=== PATIENT | female | born 1995 | race Caucasian/White ===

== ENCOUNTER 2020-02-29 16:46 | Inpatient (IN) ==
[2020-02-29] MEDS ORDERED: *HR* HYDROmorphone (PF) 1 MG/ML SYRINGE IVP ONE (18:04)
[2020-02-29 19:02] LABS: Basophils # 0.3 K/mcL (0.0-0.2); Basophils % 2.1 %; Eosinophils # 0.3 K/mcL (0.0-0.6); Hematocrit 36.9 % (35.3-44.9); Hemoglobin 12.1 g/dL (11.5-15.4); Immature Granulocytes % 5.3 % (0-4); Lymphocytes % 17.2 %; Mean Corpuscular HGB Conc 32.8 g/dL (31.6-35.5); Mean Corpuscular Hemoglobin 27.1 pg (28.0-33.3); Mean Corpuscular Volume 82.6 fL (83.0-100.0); Mean Platelet Volume 9.6 fL (9.4-12.4); Monocytes # 0.9 K/mcL (0.0-1.3); Monocytes % 5.8 %; Neutrophils # 10.4 K/mcL (1.6-8.9); Platelet Count 297 K/mcL (140-400); Red Blood Count 4.47 M/mcL (3.82-4.97); Red Cell Distribution Width 13.2 % (11.5-14.5); Segmented Neutrophils % 67.6 %; White Blood Count 15.4 K/mcL (4.3-11.1)
[2020-02-29 19:07] LABS: Lymphocytes # 2.7 K/mcL (0.6-4.6)
[2020-02-29 19:17] LABS: Alanine Aminotransferase 17 Units/L (7-52); Albumin/Globulin Ratio 1.1 (1.1-2.2); Alkaline Phosphatase 66 Units/L (34-104); Aspartate Amino Transferase 12 Units/L (13-39); BUN/Creatinine Ratio 27 (6-26); Bilirubin,Total 0.3 mg/dL (0.3-1.0); Blood Urea Nitrogen 16 mg/dL (6-20); Calcium 9.5 mg/dL (8.6-10.3); Carbon Dioxide 26 mEq/L (23-29); Chloride 104 mEq/L (98-107); Globulin 3.7 g/dL (2.4-3.5); Glucose 87 mg/dL (70-105); Osmolality,Calculated 289 (280-300); Potassium 3.2 mEq/L (3.5-5.1); Sodium 139 mEq/L (136-145); Total Protein 7.7 g/dL (6.4-8.9); eGFR For African Americans > 60 (> 60); eGFR For Non-African Americans > 60 (> 60)
[2020-02-29 19:20] LABS: Reactive Lymphocytes Present (Not Present); Toxic Granulation Present (Not Present)
[2020-02-29 19:21] LABS: Dohle Bodies Present (Not Present); Large Platelets Present (Not Present)
[2020-02-29 19:33] LABS: Bilirubin,Urine Negative (Negative); Blood,Urine Negative (Negative); Clarity,Urine Clear (Clear); Color,Urine Yellow (Yellow); Glucose,Urine (UA) 100 mg/dL (Normal); Ketones,Urine Negative (Negative); Leukocyte Esterase,Urine Negative (Negative); Mucus,Urine Few per lpf (None-Few); Nitrite,Urine Negative (Negative); Protein,Urine 30 mg/dL (Neg-Trace); RBC,Urine 0-3 per hpf (0-3); Specific Gravity,Urine > 1.030 (1.010-1.025); Squamous Epithelial Cell,Urine Few per hpf (None-Few); WBC,Urine 0-3 per hpf (0-3)
[2020-02-29 19:48] LABS: Influenza A PCR Negative (Negative); Influenza B PCR Negative (Negative); Resp. Syncytial Virus PCR Negative (Negative)
[2020-02-29 19:50] LABS: SARS-CoV-2 by PCR (In House) Negative (Negative)
[2020-02-29] MEDS ORDERED: *HR* HYDROcodone/Acet 5/325 mg TABLET PO ONE ×2 (22:00→22:11)
[2020-02-29] MEDS ORDERED: Naloxone 0.4 MG/ML INJ IVP PRN (22:55)
[2020-03-01] MEDS ORDERED: *HR* Dextrose 50 % in Water (Vial) 50 ML VIAL IVP PRN (00:10)
[2020-03-01] MEDS ORDERED: D5% in Water 1,000 ML IVC PRN (00:10)
[2020-03-01] MEDS ORDERED: Dextrose Gel 15 GM/37.5 ML TUBE PO PRN ×2 (00:10)
[2020-03-01] MEDS: 0.9 % Sodium Chloride 1,000 ML IVC SCH ×2 (00:51→13:13)
[2020-03-01] MEDS: *HR* HYDROmorphone (PF) 1 MG/ML SYRINGE IVP PRN ×5 (00:53→20:09)
[2020-03-01 01:45] LABS: White Blood Count 16.4 K/mcL (4.3-11.1)
[2020-03-01 01:46] LABS: Hematocrit 37.6 % (35.3-44.9); Hemoglobin 12.2 g/dL (11.5-15.4); Mean Corpuscular HGB Conc 32.4 g/dL (31.6-35.5); Mean Corpuscular Hemoglobin 27.2 pg (28.0-33.3); Mean Corpuscular Volume 83.7 fL (83.0-100.0); Platelet Count 305 K/mcL (140-400); Red Blood Count 4.49 M/mcL (3.82-4.97); Red Cell Distribution Width 13.2 % (11.5-14.5)
[2020-03-01 01:59] LABS: INR 1.2; Prothrombin Time 13.6 Seconds (9.4-12.1)
[2020-03-01 02:06] LABS: BUN/Creatinine Ratio 25 (6-26); Blood Urea Nitrogen 15 mg/dL (6-20); Carbon Dioxide 22 mEq/L (23-29); Chloride 102 mEq/L (98-107); Glucose 254 mg/dL (70-105); Magnesium 1.9 mg/dL (1.6-2.6); Osmolality,Calculated 291 (280-300); Phosphorous 4.1 mg/dL (2.7-4.5); Potassium 3.9 mEq/L (3.5-5.1); Sodium 136 mEq/L (136-145); eGFR For African Americans > 60 (> 60); eGFR For Non-African Americans > 60 (> 60)
[2020-03-01 02:24] LABS: Monocytes # 0.7 K/mcL (0.0-1.3); Neutrophils # 13.5 K/mcL (1.6-8.9); Platelet Estimate Normal (Normal); Toxic Granulation Present (Not Present)
[2020-03-01 02:25] LABS: Anisocytosis 1+ (Not Present)
[2020-03-01 04:45] LABS: Estimated Average Glucose 341 mg/dl; Hemoglobin A1C 13.5 %
[2020-03-01] MEDS: Insulin LISPRO 300 UNITS/3 ML VIAL SUBQ SCH ×5 (04:47→21:21)
[2020-03-01] MEDS: Ondansetron ODT 4 MG TAB.RAPDIS SL PRN ×2 (17:21→23:19)
[2020-03-01] MEDS: Pregabalin 75 MG CAPSULE PO SCH (20:10)
[2020-03-01] MEDS: Apixaban 5 MG TABLET PO SCH (20:10)
[2020-03-01] MEDS: tiZANidine 4 MG TABLET PO SCH (20:10)
[2020-03-01] MEDS: traZODone 50 MG TABLET PO SCH (21:20)
[2020-03-01] MEDS: *HR* LORazepam 0.5 MG TABLET PO SCH (21:20)
[2020-03-01] MEDS: *HR* Insulin Regular U-500 500 UNIT/ML SUBQ SCH (21:23)
[2020-03-02] MEDS: *HR* HYDROmorphone (PF) 1 MG/ML SYRINGE IVP PRN ×6 (01:19→22:35)
[2020-03-02] MEDS: Pregabalin 75 MG CAPSULE PO SCH ×3 (07:51→20:33)
[2020-03-02] MEDS: Apixaban 5 MG TABLET PO SCH ×2 (07:51→20:33)
[2020-03-02] MEDS: *HR* LORazepam 0.5 MG TABLET PO SCH ×2 (07:51→20:32)
[2020-03-02] MEDS: tiZANidine 4 MG TABLET PO SCH ×3 (07:52→20:33)
[2020-03-02] MEDS: Insulin LISPRO 300 UNITS/3 ML VIAL SUBQ SCH ×4 (07:53→23:48)
[2020-03-02] MEDS: *HR* Insulin Regular U-500 500 UNIT/ML SUBQ SCH (08:04)
[2020-03-02] MEDS: lisinopriL 5 MG TABLET PO SCH (08:05)
[2020-03-02] MEDS: lamoTRIgine 25 MG TABLET PO SCH (08:08)
[2020-03-02 08:25] LABS: Basophils # 0.2 K/mcL (0.0-0.2); Hematocrit 35.5 % (35.3-44.9); Hemoglobin 11.6 g/dL (11.5-15.4); Mean Corpuscular HGB Conc 32.7 g/dL (31.6-35.5); Mean Corpuscular Hemoglobin 27.8 pg (28.0-33.3); Mean Corpuscular Volume 85.1 fL (83.0-100.0); Mean Platelet Volume 9.7 fL (9.4-12.4); Platelet Count 245 K/mcL (140-400); Red Blood Count 4.17 M/mcL (3.82-4.97); Red Cell Distribution Width 13.1 % (11.5-14.5); White Blood Count 8.8 K/mcL (4.3-11.1)
[2020-03-02 08:39] LABS: Alanine Aminotransferase 15 Units/L (7-52); Albumin 3.7 g/dL (3.5-5.7); Albumin/Globulin Ratio 1.2 (1.1-2.2); Alkaline Phosphatase 73 Units/L (34-104); Aspartate Amino Transferase 14 Units/L (13-39); BUN/Creatinine Ratio 16 (6-26); Bilirubin,Total 0.3 mg/dL (0.3-1.0); Blood Urea Nitrogen 12 mg/dL (6-20); Calcium 9.3 mg/dL (8.6-10.3); Carbon Dioxide 25 mEq/L (23-29); Chloride 99 mEq/L (98-107); Globulin 3.2 g/dL (2.4-3.5); Glucose 407 mg/dL (70-105); Osmolality,Calculated 293 (280-300); Potassium 4.4 mEq/L (3.5-5.1); Sodium 133 mEq/L (136-145); Total Protein 6.9 g/dL (6.4-8.9); eGFR For African Americans > 60 (> 60); eGFR For Non-African Americans > 60 (> 60)
[2020-03-02 09:04] LABS: Large Platelets Present (Not Present); Lymphocytes # 1.4 K/mcL (0.6-4.6); Monocytes # 1.2 K/mcL (0.0-1.3); Platelet Estimate Normal (Normal)
[2020-03-02] MEDS: Insulin Regular, Human 100 UNIT/ML SUBQ SCH ×2 (13:09→18:39)
[2020-03-02] MEDS: Insulin DETEMIR 100 UNIT/ML X5UNITS SUBQ SCH (18:13)
[2020-03-02] MEDS: traZODone 50 MG TABLET PO SCH (20:30)
[2020-03-03] MEDS: *HR* HYDROmorphone (PF) 1 MG/ML SYRINGE IVP PRN ×3 (02:58→12:09)
[2020-03-03 07:13] LABS: Basophils # 0.2 K/mcL (0.0-0.2); Hematocrit 36.8 % (35.3-44.9); Hemoglobin 11.9 g/dL (11.5-15.4); Mean Corpuscular HGB Conc 32.3 g/dL (31.6-35.5); Mean Corpuscular Hemoglobin 26.9 pg (28.0-33.3); Mean Corpuscular Volume 83.3 fL (83.0-100.0); Mean Platelet Volume 9.8 fL (9.4-12.4); Nucleated Red Blood Cells 0.2 /100 WBC (0); Platelet Count 253 K/mcL (140-400); Red Blood Count 4.42 M/mcL (3.82-4.97); Red Cell Distribution Width 13.1 % (11.5-14.5); White Blood Count 9.7 K/mcL (4.3-11.1)
[2020-03-03 07:37] LABS: BUN/Creatinine Ratio 19 (6-26); Blood Urea Nitrogen 14 mg/dL (6-20); Calcium 9.1 mg/dL (8.6-10.3); Carbon Dioxide 24 mEq/L (23-29); Chloride 97 mEq/L (98-107); Glucose 416 mg/dL (70-105); Magnesium 1.6 mg/dL (1.6-2.6); Osmolality,Calculated 292 (280-300); Potassium 4.3 mEq/L (3.5-5.1); Sodium 132 mEq/L (136-145); eGFR For African Americans > 60 (> 60); eGFR For Non-African Americans > 60 (> 60)
[2020-03-03] MEDS: Insulin DETEMIR 100 UNIT/ML X5UNITS SUBQ SCH ×2 (07:58→20:20)
[2020-03-03] MEDS: lamoTRIgine 25 MG TABLET PO SCH (07:59)
[2020-03-03] MEDS: lisinopriL 5 MG TABLET PO SCH (07:59)
[2020-03-03] MEDS: tiZANidine 4 MG TABLET PO SCH ×3 (08:00→20:12)
[2020-03-03] MEDS: Pregabalin 75 MG CAPSULE PO SCH ×3 (08:00→20:13)
[2020-03-03] MEDS: Apixaban 5 MG TABLET PO SCH ×2 (08:01→20:13)
[2020-03-03] MEDS: *HR* LORazepam 0.5 MG TABLET PO SCH ×2 (08:02→20:14)
[2020-03-03] MEDS: Insulin LISPRO 300 UNITS/3 ML VIAL SUBQ SCH ×3 (08:02→16:28)
[2020-03-03 08:13] LABS: Eosinophils # 0.2 K/mcL (0.0-0.6); Lymphocytes # 1.4 K/mcL (0.6-4.6); Monocytes # 0.2 K/mcL (0.0-1.3); Neutrophils # 6.4 K/mcL (1.6-8.9); Reactive Lymphocytes Present (Not Present)
[2020-03-03 08:14] LABS: Platelet Estimate Normal (Normal)
[2020-03-03] MEDS: Insulin Regular, Human 100 UNIT/ML SUBQ SCH (12:39)
[2020-03-03] MEDS ORDERED: *HR* OxyCODONE/APAP 10/325 TABLET PO PRN (15:48)
[2020-03-03] MEDS ORDERED: *HR* Dextrose 50 % in Water (Vial) 50 ML VIAL IVP PRN (16:15)
[2020-03-03] MEDS ORDERED: D5% in Water 1,000 ML IVC PRN (16:15)
[2020-03-03] MEDS ORDERED: Dextrose Gel 15 GM/37.5 ML TUBE PO PRN ×2 (16:15)
[2020-03-03] MEDS: *HR* OxyCODONE/APAP 10/325 TABLET PO PRN ×2 (16:22→23:57)
[2020-03-03] MEDS: traZODone 50 MG TABLET PO SCH (20:13)
[2020-03-03] MEDS: *HR* HYDROmorphone PF 0.5 MG/0.5 ML SYRINGE IVP PRN (20:14)
[2020-03-04 02:52] LABS: Hematocrit 34.1 % (35.3-44.9); Hemoglobin 11.3 g/dL (11.5-15.4); Mean Corpuscular HGB Conc 33.1 g/dL (31.6-35.5); Mean Corpuscular Hemoglobin 27.2 pg (28.0-33.3); Mean Corpuscular Volume 82.2 fL (83.0-100.0); Mean Platelet Volume 9.8 fL (9.4-12.4); Platelet Count 255 K/mcL (140-400); Red Blood Count 4.15 M/mcL (3.82-4.97); White Blood Count 10.1 K/mcL (4.3-11.1)
[2020-03-04 03:12] LABS: BUN/Creatinine Ratio 24 (6-26); Blood Urea Nitrogen 19 mg/dL (6-20); Calcium 8.6 mg/dL (8.6-10.3); Carbon Dioxide 21 mEq/L (23-29); Chloride 95 mEq/L (98-107); Glucose 501 mg/dL (70-105); Magnesium 1.6 mg/dL (1.6-2.6); Osmolality,Calculated 291 (280-300); Potassium 4.3 mEq/L (3.5-5.1); Sodium 128 mEq/L (136-145); eGFR For African Americans > 60 (> 60); eGFR For Non-African Americans > 60 (> 60)
[2020-03-04] MEDS ORDERED: Insulin Human Regular 10 UNIT in 0.9 % Sodium Chloride 10 ML IV ONE (03:19)
[2020-03-04 04:00] LABS: Eosinophils # 0.2 K/mcL (0.0-0.6); Lymphocytes # 2.6 K/mcL (0.6-4.6); Monocytes # 0.8 K/mcL (0.0-1.3); Neutrophils # 6.5 K/mcL (1.6-8.9)
[2020-03-04 04:01] LABS: Platelet Estimate Normal (Normal); Reactive Lymphocytes Present (Not Present)
[2020-03-04] MEDS: *HR* HYDROmorphone PF 0.5 MG/0.5 ML SYRINGE IVP PRN (04:17)
[2020-03-04] MEDS ORDERED: Insulin LISPRO 300 UNITS/3 ML VIAL SUBQ ONE (04:47)
[2020-03-04] MEDS: *HR* OxyCODONE/APAP 10/325 TABLET PO PRN ×3 (05:59→18:10)
[2020-03-04] MEDS: Apixaban 5 MG TABLET PO SCH ×2 (07:57→20:37)
[2020-03-04] MEDS: lamoTRIgine 25 MG TABLET PO SCH (07:57)
[2020-03-04] MEDS: *HR* LORazepam 0.5 MG TABLET PO SCH ×2 (07:57→20:36)
[2020-03-04] MEDS: Pregabalin 75 MG CAPSULE PO SCH ×3 (07:57→20:36)
[2020-03-04] MEDS: tiZANidine 4 MG TABLET PO SCH ×3 (07:58→20:36)
[2020-03-04] MEDS: Insulin DETEMIR 100 UNIT/ML X5UNITS SUBQ SCH ×3 (07:59→20:40)
[2020-03-04] MEDS: Insulin LISPRO 300 UNITS/3 ML VIAL SUBQ SCH ×3 (08:00→16:51)
[2020-03-04] MEDS: lisinopriL 5 MG TABLET PO SCH (08:03)
[2020-03-04] MEDS ORDERED: Dextrose Gel 15 GM/37.5 ML TUBE PO PRN ×2 (08:04)
[2020-03-04] MEDS ORDERED: D5% in Water 1,000 ML IVC PRN (08:04)
[2020-03-04] MEDS ORDERED: *HR* Dextrose 50 % in Water (Vial) 50 ML VIAL IVP PRN (08:04)
[2020-03-04] MEDS: Sennosides/Docusate Sodium TABLET PO SCH (08:41)
[2020-03-04] MEDS: Metoprolol XL (24 HR) Succ 25 MG TAB.ER.24H PO SCH (08:41)
[2020-03-04] MEDS: polyethylene glycoL 3350 17 GM POWD.PACK PO SCH (10:53)
[2020-03-04] MEDS ORDERED: *HR* HYDROmorphone 2 MG TABLET PO PRN (14:29)
[2020-03-04] MEDS: traZODone 50 MG TABLET PO SCH (20:37)
[2020-03-05] MEDS: *HR* OxyCODONE/APAP 10/325 TABLET PO PRN ×4 (00:16→18:21)
[2020-03-05] MEDS ORDERED: Albuterol 2.5 MG/3 ML NEBULIZER IH PRN (01:26)
[2020-03-05 01:31] LABS: Basophils % 0.4 %; Eosinophils % 0.1 %; Hematocrit 37.5 % (35.3-44.9); Hemoglobin 12.1 g/dL (11.5-15.4); Immature Granulocytes % 14.5 % (0-4); Lymphocytes # 1.9 K/mcL (0.6-4.6); Lymphocytes % 19.5 %; Mean Corpuscular HGB Conc 32.3 g/dL (31.6-35.5); Mean Corpuscular Hemoglobin 27.4 pg (28.0-33.3); Mean Corpuscular Volume 84.8 fL (83.0-100.0); Mean Platelet Volume 9.9 fL (9.4-12.4); Monocytes # 1.4 K/mcL (0.0-1.3); Monocytes % 14.8 %; Neutrophils # 4.8 K/mcL (1.6-8.9); Platelet Count 255 K/mcL (140-400); Red Blood Count 4.42 M/mcL (3.82-4.97); Red Cell Distribution Width 12.9 % (11.5-14.5); Segmented Neutrophils % 50.7 %; White Blood Count 9.5 K/mcL (4.3-11.1)
[2020-03-05] MEDS: Ringers Solution, Lactated 1,000 ML IVC SCH ×2 (01:32→18:32)
[2020-03-05 01:50] LABS: Platelet Estimate Normal (Normal); Reactive Lymphocytes Present (Not Present)
[2020-03-05 01:51] LABS: BUN/Creatinine Ratio 23 (6-26); Blood Urea Nitrogen 21 mg/dL (6-20); Calcium 8.5 mg/dL (8.6-10.3); Carbon Dioxide 23 mEq/L (23-29); Chloride 95 mEq/L (98-107); Glucose 474 mg/dL (70-105); Magnesium 1.6 mg/dL (1.6-2.6); Osmolality,Calculated 292 (280-300); Potassium 4.3 mEq/L (3.5-5.1); Sodium 129 mEq/L (136-145); eGFR For African Americans > 60 (> 60); eGFR For Non-African Americans > 60 (> 60)
[2020-03-05] MEDS: Acetaminophen 325 MG TABLET PO PRN (05:14)
[2020-03-05] MEDS: Pregabalin 75 MG CAPSULE PO SCH ×3 (08:16→21:57)
[2020-03-05] MEDS: Apixaban 5 MG TABLET PO SCH ×2 (08:16→21:57)
[2020-03-05] MEDS: Sennosides/Docusate Sodium TABLET PO SCH (08:16)
[2020-03-05] MEDS: *HR* LORazepam 0.5 MG TABLET PO SCH ×2 (08:16→21:57)
[2020-03-05] MEDS: tiZANidine 4 MG TABLET PO SCH ×3 (08:17→21:57)
[2020-03-05] MEDS: lamoTRIgine 25 MG TABLET PO SCH (08:17)
[2020-03-05] MEDS: Metoprolol XL (24 HR) Succ 25 MG TAB.ER.24H PO SCH (08:18)
[2020-03-05] MEDS: lisinopriL 5 MG TABLET PO SCH (08:18)
[2020-03-05] MEDS: polyethylene glycoL 3350 17 GM POWD.PACK PO SCH (08:18)
[2020-03-05] MEDS: Insulin LISPRO 300 UNITS/3 ML VIAL SUBQ SCH ×3 (08:18→17:18)
[2020-03-05] MEDS: Insulin DETEMIR 100 UNIT/ML X5UNITS SUBQ SCH ×2 (08:26→21:58)
[2020-03-05 17:57] LABS: Adenovirus Not Detected (Not Detect); Coronavirus 229E Not Detected (Not Detect); Coronavirus HKU1 Not Detected (Not Detect); Coronavirus NL63 Not Detected (Not Detect); Coronavirus OC43 Not Detected (Not Detect)
[2020-03-05 17:59] LABS: Bordetella Pertussis Not Detected (Not Detect); Chlamydophila pneumoniae Not Detected (Not Detect); Human Metapneumovirus Not Detected (Not Detect); Human Rhinovirus/Enterovirus Not Detected (Not Detect); Influenza A Subtype 2009 H1 Not Detected (Not Detect); Influenza B Not Detected (Not Detect); Mycoplasma pneumoniae Not Detected (Not Detect); Parainfluenza Virus 1 Not Detected (Not Detect); Parainfluenza Virus 2 Not Detected (Not Detect); Parainfluenza Virus 3 Not Detected (Not Detect); Parainfluenza Virus 4 Not Detected (Not Detect); Respiratory Syncytial Virus Not Detected (Not Detect); SARS-CoV-2 DETECTED (Not Detect)
[2020-03-05] MEDS: traZODone 50 MG TABLET PO SCH (21:57)
[2020-03-06] MEDS: Acetaminophen 325 MG TABLET PO PRN (00:17)
[2020-03-06 01:47] LABS: Hematocrit 37.3 % (35.3-44.9); Mean Corpuscular HGB Conc 32.2 g/dL (31.6-35.5); Mean Corpuscular Hemoglobin 26.7 pg (28.0-33.3); Mean Corpuscular Volume 83.1 fL (83.0-100.0); Mean Platelet Volume 9.8 fL (9.4-12.4); Monocytes # 1.2 K/mcL (0.0-1.3); Platelet Count 238 K/mcL (140-400); Red Blood Count 4.49 M/mcL (3.82-4.97); Red Cell Distribution Width 12.9 % (11.5-14.5); White Blood Count 11.7 K/mcL (4.3-11.1)
[2020-03-06 02:08] LABS: BUN/Creatinine Ratio 23 (6-26); Blood Urea Nitrogen 21 mg/dL (6-20); Calcium 8.5 mg/dL (8.6-10.3); Carbon Dioxide 26 mEq/L (23-29); Chloride 97 mEq/L (98-107); Glucose 303 mg/dL (70-105); Magnesium 1.8 mg/dL (1.6-2.6); Osmolality,Calculated 288 (280-300); Potassium 4.3 mEq/L (3.5-5.1); Sodium 132 mEq/L (136-145); eGFR For African Americans > 60 (> 60); eGFR For Non-African Americans > 60 (> 60)
[2020-03-06 02:31] LABS: Lymphocytes # 2.6 K/mcL (0.6-4.6); Neutrophils # 6.6 K/mcL (1.6-8.9); Reactive Lymphocytes Present (Not Present)
[2020-03-06] MEDS: *HR* OxyCODONE/APAP 10/325 TABLET PO PRN ×3 (06:17→21:18)
[2020-03-06] MEDS: Pregabalin 75 MG CAPSULE PO SCH ×3 (08:59→20:45)
[2020-03-06] MEDS: tiZANidine 4 MG TABLET PO SCH ×3 (09:03→20:44)
[2020-03-06] MEDS: Metoprolol XL (24 HR) Succ 25 MG TAB.ER.24H PO SCH ×2 (09:04→10:39)
[2020-03-06] MEDS: Apixaban 5 MG TABLET PO SCH ×2 (09:05→20:45)
[2020-03-06] MEDS: lamoTRIgine 25 MG TABLET PO SCH (09:05)
[2020-03-06] MEDS: Sennosides/Docusate Sodium TABLET PO SCH (09:05)
[2020-03-06] MEDS: *HR* LORazepam 0.5 MG TABLET PO SCH ×2 (09:05→20:44)
[2020-03-06] MEDS: polyethylene glycoL 3350 17 GM POWD.PACK PO SCH ×2 (09:07→10:38)
[2020-03-06] MEDS: lisinopriL 5 MG TABLET PO SCH (09:09)
[2020-03-06] MEDS: Insulin DETEMIR 100 UNIT/ML X5UNITS SUBQ SCH ×2 (09:28→20:46)
[2020-03-06] MEDS: Insulin LISPRO 300 UNITS/3 ML VIAL SUBQ SCH ×3 (09:31→17:58)
[2020-03-06] MEDS: Ondansetron ODT 4 MG TAB.RAPDIS SL PRN (16:00)
[2020-03-06] MEDS: dexAMETHasone 4 MG TABLET PO SCH (18:17)
[2020-03-06] MEDS: Ringers Solution, Lactated 1,000 ML IVC SCH ×3 (18:45→21:27)
[2020-03-06] MEDS: traZODone 50 MG TABLET PO SCH (20:44)
[2020-03-07] MEDS: Ringers Solution, Lactated 1,000 ML IVC SCH ×2 (01:30→08:33)
[2020-03-07] MEDS: tiZANidine 4 MG TABLET PO SCH ×3 (08:29→20:36)
[2020-03-07] MEDS: polyethylene glycoL 3350 17 GM POWD.PACK PO SCH (08:29)
[2020-03-07] MEDS: Apixaban 5 MG TABLET PO SCH ×2 (08:29→20:36)
[2020-03-07] MEDS: Sennosides/Docusate Sodium TABLET PO SCH (08:30)
[2020-03-07] MEDS: Pregabalin 75 MG CAPSULE PO SCH ×3 (08:30→20:37)
[2020-03-07] MEDS: lamoTRIgine 25 MG TABLET PO SCH (08:30)
[2020-03-07] MEDS: *HR* LORazepam 0.5 MG TABLET PO SCH ×2 (08:30→20:36)
[2020-03-07] MEDS: dexAMETHasone 4 MG TABLET PO SCH (08:31)
[2020-03-07] MEDS: Insulin LISPRO 300 UNITS/3 ML VIAL SUBQ SCH ×2 (08:32→12:08)
[2020-03-07] MEDS: Insulin DETEMIR 100 UNIT/ML X5UNITS SUBQ SCH (08:32)
[2020-03-07] MEDS: lisinopriL 5 MG TABLET PO SCH (08:33)
[2020-03-07] MEDS: Metoprolol XL (24 HR) Succ 25 MG TAB.ER.24H PO SCH (08:33)
[2020-03-07] MEDS: *HR* OxyCODONE/APAP 10/325 TABLET PO PRN ×3 (08:40→21:39)
[2020-03-07] MEDS ORDERED: Insulin DETEMIR 100 UNIT/ML X5UNITS SUBQ ONE (09:37)
[2020-03-07 10:08] LABS: Hematocrit 37.6 % (35.3-44.9); Hemoglobin 12.2 g/dL (11.5-15.4); Mean Corpuscular HGB Conc 32.4 g/dL (31.6-35.5); Mean Corpuscular Hemoglobin 27.4 pg (28.0-33.3); Mean Corpuscular Volume 84.5 fL (83.0-100.0); Mean Platelet Volume 10.1 fL (9.4-12.4); Platelet Count 250 K/mcL (140-400); Red Blood Count 4.45 M/mcL (3.82-4.97); Red Cell Distribution Width 12.9 % (11.5-14.5); White Blood Count 7.9 K/mcL (4.3-11.1)
[2020-03-07 10:12] LABS: Fibrinogen 693 mg/dL (169-393)
[2020-03-07 10:15] LABS: D-Dimer 268 ng/mLFEU (0-500)
[2020-03-07 10:23] LABS: Alanine Aminotransferase 13 Units/L (7-52); Albumin 3.7 g/dL (3.5-5.7); Alkaline Phosphatase 62 Units/L (34-104); Aspartate Amino Transferase 17 Units/L (13-39); BUN/Creatinine Ratio 26 (6-26); Bilirubin,Total 0.3 mg/dL (0.3-1.0); Blood Urea Nitrogen 18 mg/dL (6-20); Calcium 8.9 mg/dL (8.6-10.3); Carbon Dioxide 24 mEq/L (23-29); Chloride 95 mEq/L (98-107); Globulin 3.6 g/dL (2.4-3.5); Glucose 364 mg/dL (70-105); Osmolality,Calculated 289 (280-300); Potassium 4.8 mEq/L (3.5-5.1); Sodium 131 mEq/L (136-145); Total Protein 7.3 g/dL (6.4-8.9); eGFR For African Americans > 60 (> 60); eGFR For Non-African Americans > 60 (> 60)
[2020-03-07 11:12] LABS: Lymphocytes # 1.2 K/mcL (0.6-4.6); Monocytes # 0.5 K/mcL (0.0-1.3); Platelet Estimate Normal (Normal)
[2020-03-07] MEDS: Ipratropium 1 PUFF INHALER IH SCH ×3 (11:30→20:38)
[2020-03-07] MEDS ORDERED: Insulin LISPRO 300 UNITS/3 ML VIAL SUBQ SCH ×2 (12:00→21:00)
[2020-03-07] MEDS: Azithromycin 250 MG TABLET PO SCH (12:07)
[2020-03-07] MEDS: cefTRIAXone 1,000 MG in Water for inj. (sterile) 10 ML IVP SCH (13:52)
[2020-03-07] MEDS ORDERED: *HR* Dextrose 50 % in Water (Vial) 50 ML VIAL IVP PRN (16:22)
[2020-03-07] MEDS ORDERED: 0.9 % Sodium Chloride 1,000 ML IVC SCH (16:30)
[2020-03-07] MEDS: Insulin Human Regular 100 UNIT in 0.9 % Sodium Chloride 100 ML IVC SCH ×2 (17:26→22:44)
[2020-03-07] MEDS: traZODone 50 MG TABLET PO SCH (20:37)
[2020-03-07] MEDS ORDERED: Insulin DETEMIR 100 UNIT/ML X5UNITS SUBQ SCH (21:00)
[2020-03-08] MEDS: Ipratropium 1 PUFF INHALER IH SCH ×7 (00:31→23:58)
[2020-03-08] MEDS: Insulin Human Regular 100 UNIT in 0.9 % Sodium Chloride 100 ML IVC SCH (04:04)
[2020-03-08 05:11] LABS: Hematocrit 37.4 % (35.3-44.9); Hemoglobin 11.7 g/dL (11.5-15.4); Mean Corpuscular HGB Conc 31.3 g/dL (31.6-35.5); Mean Corpuscular Hemoglobin 26.3 pg (28.0-33.3); Mean Platelet Volume 9.8 fL (9.4-12.4); Platelet Count 254 K/mcL (140-400); Red Blood Count 4.45 M/mcL (3.82-4.97); Red Cell Distribution Width 12.7 % (11.5-14.5)
[2020-03-08 05:23] LABS: White Blood Count 13.2 K/mcL (4.3-11.1)
[2020-03-08 05:26] LABS: BUN/Creatinine Ratio 29 (6-26); Blood Urea Nitrogen 22 mg/dL (6-20); Calcium 8.8 mg/dL (8.6-10.3); Carbon Dioxide 26 mEq/L (23-29); Chloride 98 mEq/L (98-107); Glucose 221 mg/dL (70-105); Osmolality,Calculated 292 (280-300); Sodium 136 mEq/L (136-145); eGFR For African Americans > 60 (> 60); eGFR For Non-African Americans > 60 (> 60)
[2020-03-08 06:09] LABS: Lymphocytes # 1.9 K/mcL (0.6-4.6); Monocytes # 0.5 K/mcL (0.0-1.3); Neutrophils # 9.5 K/mcL (1.6-8.9)
[2020-03-08 06:10] LABS: Platelet Estimate Normal (Normal)
[2020-03-08] MEDS: *HR* OxyCODONE/APAP 10/325 TABLET PO PRN ×3 (06:46→20:28)
[2020-03-08] MEDS: Insulin LISPRO 300 UNITS/3 ML VIAL SUBQ SCH ×5 (08:48→16:12)
[2020-03-08] MEDS: polyethylene glycoL 3350 17 GM POWD.PACK PO SCH ×2 (08:53→09:30)
[2020-03-08] MEDS: *HR* LORazepam 0.5 MG TABLET PO SCH ×2 (08:53→20:28)
[2020-03-08] MEDS: cefTRIAXone 1,000 MG in Water for inj. (sterile) 10 ML IVP SCH (08:53)
[2020-03-08] MEDS: Sennosides/Docusate Sodium TABLET PO SCH (08:54)
[2020-03-08] MEDS: dexAMETHasone 4 MG TABLET PO SCH (08:54)
[2020-03-08] MEDS: Metoprolol XL (24 HR) Succ 25 MG TAB.ER.24H PO SCH ×2 (08:54→09:30)
[2020-03-08] MEDS: Apixaban 5 MG TABLET PO SCH ×2 (08:54→20:28)
[2020-03-08] MEDS: tiZANidine 4 MG TABLET PO SCH ×3 (08:54→20:27)
[2020-03-08] MEDS: Pregabalin 75 MG CAPSULE PO SCH ×3 (08:55→20:27)
[2020-03-08] MEDS: Azithromycin 250 MG TABLET PO SCH (08:55)
[2020-03-08] MEDS: lamoTRIgine 25 MG TABLET PO SCH (08:55)
[2020-03-08] MEDS: Insulin DETEMIR 100 UNIT/ML X5UNITS SUBQ SCH ×2 (11:43→20:30)
[2020-03-08] MEDS: traZODone 50 MG TABLET PO SCH (20:28)
[2020-03-09] MEDS: Ipratropium 1 PUFF INHALER IH SCH ×7 (03:43→23:43)
[2020-03-09 04:24] LABS: Hematocrit 37.8 % (35.3-44.9); Mean Corpuscular HGB Conc 31.7 g/dL (31.6-35.5); Mean Corpuscular Hemoglobin 26.4 pg (28.0-33.3); Mean Corpuscular Volume 83.3 fL (83.0-100.0); Mean Platelet Volume 9.7 fL (9.4-12.4); Platelet Count 291 K/mcL (140-400); Red Blood Count 4.54 M/mcL (3.82-4.97); Red Cell Distribution Width 13.2 % (11.5-14.5); White Blood Count 18.6 K/mcL (4.3-11.1)
[2020-03-09] MEDS: *HR* OxyCODONE/APAP 10/325 TABLET PO PRN ×3 (04:33→20:17)
[2020-03-09 04:42] LABS: BUN/Creatinine Ratio 26 (6-26); Blood Urea Nitrogen 18 mg/dL (6-20); Calcium 8.8 mg/dL (8.6-10.3); Carbon Dioxide 26 mEq/L (23-29); Chloride 93 mEq/L (98-107); Glucose 406 mg/dL (70-105); Osmolality,Calculated 291 (280-300); Potassium 4.5 mEq/L (3.5-5.1); Sodium 131 mEq/L (136-145); eGFR For African Americans > 60 (> 60); eGFR For Non-African Americans > 60 (> 60)
[2020-03-09 05:16] LABS: Lymphocytes # 2.6 K/mcL (0.6-4.6); Monocytes # 1.5 K/mcL (0.0-1.3); Reactive Lymphocytes Present (Not Present)
[2020-03-09 05:17] LABS: Platelet Estimate Normal (Normal)
[2020-03-09] MEDS: Metoprolol XL (24 HR) Succ 25 MG TAB.ER.24H PO SCH (08:19)
[2020-03-09] MEDS: polyethylene glycoL 3350 17 GM POWD.PACK PO SCH (08:20)
[2020-03-09] MEDS: lamoTRIgine 25 MG TABLET PO SCH (08:31)
[2020-03-09] MEDS: Apixaban 5 MG TABLET PO SCH ×2 (08:31→20:18)
[2020-03-09] MEDS: tiZANidine 4 MG TABLET PO SCH ×3 (08:31→20:16)
[2020-03-09] MEDS: Pregabalin 75 MG CAPSULE PO SCH ×3 (08:31→20:16)
[2020-03-09] MEDS: cefTRIAXone 1,000 MG in Water for inj. (sterile) 10 ML IVP SCH (08:31)
[2020-03-09] MEDS: Azithromycin 250 MG TABLET PO SCH (08:32)
[2020-03-09] MEDS: *HR* LORazepam 0.5 MG TABLET PO SCH ×2 (08:32→20:18)
[2020-03-09] MEDS: Sennosides/Docusate Sodium TABLET PO SCH (08:32)
[2020-03-09] MEDS: Insulin DETEMIR 100 UNIT/ML X5UNITS SUBQ SCH ×2 (08:33→21:10)
[2020-03-09] MEDS: Insulin LISPRO 300 UNITS/3 ML VIAL SUBQ SCH ×4 (08:33→12:00)
[2020-03-09] MEDS: dexAMETHasone 4 MG TABLET PO SCH (08:33)
[2020-03-09 13:59] LABS: Albumin 3.5 g/dL (3.5-5.7); Albumin/Globulin Ratio 0.9 (1.1-2.2); Bilirubin,Direct 0.1 mg/dL (0.0-0.2); Bilirubin,Indirect 0.1 mg/dL (0.0-1.0); Bilirubin,Total 0.2 mg/dL (0.3-1.0); Globulin 3.8 g/dL (2.4-3.5); Total Protein 7.3 g/dL (6.4-8.9)
[2020-03-09] MEDS ORDERED: Remdesivir 200 MG in 0.9 % Sodium Chloride 100 ML IVPB ONE ×3 (17:00→20:00)
[2020-03-09] MEDS ORDERED: Furosemide 40 MG/4 ML VIAL IVP ONE (19:58)
[2020-03-09 22:11] LABS: Fibrinogen 961 mg/dL (169-393)
[2020-03-09 22:21] LABS: D-Dimer 291 ng/mLFEU (0-500)
[2020-03-09] MEDS: traZODone 50 MG TABLET PO SCH (23:02)
[2020-03-09] MEDS: Pantoprazole 40 MG VIAL IVP SCH (23:14)
[2020-03-10] MEDS ORDERED: Dexmedetomidine HCl 400 MCG/100 ML MLS IVC ONE (00:44)
[2020-03-10] MEDS: Ipratropium 1 PUFF INHALER IH SCH ×6 (03:32→23:19)
[2020-03-10] MEDS: *HR* OxyCODONE Immed Rel 15 MG TABLET PO PRN ×2 (04:11→23:29)
[2020-03-10 07:13] LABS: Hematocrit 37.4 % (35.3-44.9); Hemoglobin 11.9 g/dL (11.5-15.4); Lymphocytes # 1.4 K/mcL (0.6-4.6); Mean Corpuscular HGB Conc 31.8 g/dL (31.6-35.5); Mean Corpuscular Hemoglobin 26.6 pg (28.0-33.3); Mean Corpuscular Volume 83.5 fL (83.0-100.0); Mean Platelet Volume 9.8 fL (9.4-12.4); Platelet Count 346 K/mcL (140-400); Red Blood Count 4.48 M/mcL (3.82-4.97); Red Cell Distribution Width 13.2 % (11.5-14.5); White Blood Count 23.6 K/mcL (4.3-11.1)
[2020-03-10 07:14] LABS: INR 1.6; Prothrombin Time 18.1 Seconds (9.4-12.1)
[2020-03-10 07:28] LABS: Alanine Aminotransferase 14 Units/L (7-52); Albumin 3.5 g/dL (3.5-5.7); Albumin/Globulin Ratio 0.8 (1.1-2.2); Alkaline Phosphatase 52 Units/L (34-104); Aspartate Amino Transferase 24 Units/L (13-39); BUN/Creatinine Ratio 27 (6-26); Bilirubin,Total 0.3 mg/dL (0.3-1.0); Blood Urea Nitrogen 19 mg/dL (6-20); Carbon Dioxide 28 mEq/L (23-29); Chloride 94 mEq/L (98-107); Globulin 4.2 g/dL (2.4-3.5); Glucose 380 mg/dL (70-105); Osmolality,Calculated 296 (280-300); Potassium 4.4 mEq/L (3.5-5.1); Sodium 134 mEq/L (136-145); Total Protein 7.7 g/dL (6.4-8.9); eGFR For African Americans > 60 (> 60); eGFR For Non-African Americans > 60 (> 60)
[2020-03-10] MEDS: Insulin LISPRO 300 UNITS/3 ML VIAL SUBQ SCH ×8 (07:48→18:25)
[2020-03-10] MEDS: Sennosides/Docusate Sodium TABLET PO SCH (07:53)
[2020-03-10] MEDS: Metoprolol XL (24 HR) Succ 25 MG TAB.ER.24H PO SCH ×2 (07:53→08:50)
[2020-03-10] MEDS: Azithromycin 250 MG TABLET PO SCH (07:53)
[2020-03-10] MEDS: tiZANidine 4 MG TABLET PO SCH ×3 (07:53→20:23)
[2020-03-10] MEDS: Apixaban 5 MG TABLET PO SCH (07:54)
[2020-03-10] MEDS: Pregabalin 75 MG CAPSULE PO SCH ×3 (07:55→20:22)
[2020-03-10] MEDS: *HR* LORazepam 0.5 MG TABLET PO SCH ×2 (07:55→20:23)
[2020-03-10] MEDS: lamoTRIgine 25 MG TABLET PO SCH (07:55)
[2020-03-10] MEDS: cefTRIAXone 1,000 MG in Water for inj. (sterile) 10 ML IVP SCH (08:02)
[2020-03-10] MEDS: Pantoprazole 40 MG VIAL IVP SCH (08:02)
[2020-03-10] MEDS: polyethylene glycoL 3350 17 GM POWD.PACK PO SCH ×2 (08:20→08:50)
[2020-03-10] MEDS: Insulin DETEMIR 100 UNIT/ML X5UNITS SUBQ SCH ×2 (08:20→21:08)
[2020-03-10 08:54] LABS: Monocytes # 0.5 K/mcL (0.0-1.3); Neutrophils # 20.8 K/mcL (1.6-8.9); Platelet Estimate Normal (Normal)
[2020-03-10] MEDS: Furosemide 40 MG/4 ML VIAL IVP SCH ×2 (11:14→20:33)
[2020-03-10] MEDS: Dexmedetomidine HCl 400 MCG/100 ML MLS IVC SCH ×2 (11:32→18:40)
[2020-03-10] MEDS: Acetaminophen IV 1,000 MG/100 ML BAG IVPB SCH ×2 (15:35→23:15)
[2020-03-10 16:46] LABS: Bilirubin,Urine Negative (Negative); Blood,Urine Small (Negative); Budding Yeast,Urine Few per hpf (None Seen); Clarity,Urine Clear (Clear); Color,Urine Yellow (Yellow); Glucose,Urine (UA) >=1000 mg/dL (Normal); Ketones,Urine Negative (Negative); Leukocyte Esterase,Urine Negative (Negative); Mucus,Urine Few per lpf (None-Few); Nitrite,Urine Negative (Negative); Protein,Urine 200 mg/dL (Neg-Trace); Squamous Epithelial Cell,Urine Few per hpf (None-Few); Urobilinogen,Urine Normal (Normal); WBC,Urine 0-3 per hpf (0-3)
[2020-03-10] MEDS ORDERED: Remdesivir 100 MG in 0.9 % Sodium Chloride 100 ML IVPB SCH ×3 (17:00→20:00)
[2020-03-10 17:06] LABS: Hematocrit 35.5 % (35.3-44.9); Hemoglobin 11.5 g/dL (11.5-15.4); Mean Corpuscular HGB Conc 32.4 g/dL (31.6-35.5); Mean Corpuscular Hemoglobin 26.9 pg (28.0-33.3); Mean Corpuscular Volume 82.9 fL (83.0-100.0); Mean Platelet Volume 9.9 fL (9.4-12.4); Platelet Count 327 K/mcL (140-400); Red Blood Count 4.28 M/mcL (3.82-4.97); Red Cell Distribution Width 13.4 % (11.5-14.5)
[2020-03-10 17:15] LABS: INR 1.8; Prothrombin Time 20.9 Seconds (9.4-12.1)
[2020-03-10 17:35] LABS: Heparin anti-factor XA UFH 1.35 IU/mL (0.30-0.70)
[2020-03-10] MEDS ORDERED: Acetaminophen IV 1,000 MG/100 ML BAG IVPB SCH (18:00)
[2020-03-10] MEDS: traZODone 50 MG TABLET PO SCH (20:23)
[2020-03-10] MEDS ORDERED: Heparin 25,000UNIT/250ML 1/2NS 25,000 UNIT/250 ML IV.SOLN IVC SCH (21:00)
[2020-03-10] MEDS ORDERED: *HR* Heparin 5,000 UNIT/ML VIAL IVP PRN (21:00)
[2020-03-10] MEDS ORDERED: Remdesivir 100 MG in 0.9 % Sodium Chloride 100 ML IVPB ONE (21:00)
[2020-03-10] MEDS: Remdesivir 100 MG in 0.9 % Sodium Chloride 100 ML IVPB SCH (21:00)
[2020-03-10] MEDS: *HR* OxyCODONE/APAP 10/325 TABLET PO PRN (21:11)
[2020-03-10] MEDS: Heparin 25,000UNIT/250ML 1/2NS 25,000 UNIT/250 ML IV.SOLN IVC SCH (23:46)
[2020-03-11] MEDS: Dexmedetomidine HCl 400 MCG/100 ML MLS IVC SCH ×4 (00:38→19:20)
[2020-03-11 03:28] LABS: Hematocrit 35.8 % (35.3-44.9); Hemoglobin 11.2 g/dL (11.5-15.4); Mean Corpuscular HGB Conc 31.3 g/dL (31.6-35.5); Mean Corpuscular Hemoglobin 26.9 pg (28.0-33.3); Mean Corpuscular Volume 86.1 fL (83.0-100.0); Platelet Count 346 K/mcL (140-400); Red Blood Count 4.16 M/mcL (3.82-4.97); Red Cell Distribution Width 13.6 % (11.5-14.5); White Blood Count 19.9 K/mcL (4.3-11.1)
[2020-03-11 03:31] LABS: Heparin anti-factor XA UFH 0.8 IU/mL (0.30-0.70); INR 1.6; Prothrombin Time 18.2 Seconds (9.4-12.1)
[2020-03-11 03:33] LABS: D-Dimer < 215 ng/mLFEU (0-500)
[2020-03-11 03:35] LABS: VBG Ionized Calcium 0.98 mmol/L (1.15-1.35)
[2020-03-11 03:43] LABS: Alanine Aminotransferase 15 Units/L (7-52); Albumin 3.3 g/dL (3.5-5.7); Albumin/Globulin Ratio 0.8 (1.1-2.2); Alkaline Phosphatase 48 Units/L (34-104); Aspartate Amino Transferase 38 Units/L (13-39); BUN/Creatinine Ratio 41 (6-26); Bilirubin,Total 0.3 mg/dL (0.3-1.0); Blood Urea Nitrogen 31 mg/dL (6-20); Calcium 8.6 mg/dL (8.6-10.3); Carbon Dioxide 28 mEq/L (23-29); Chloride 94 mEq/L (98-107); Glucose 258 mg/dL (70-105); Osmolality,Calculated 291 (280-300); Potassium 4.6 mEq/L (3.5-5.1); Sodium 133 mEq/L (136-145); Total Protein 7.3 g/dL (6.4-8.9); eGFR For African Americans > 60 (> 60); eGFR For Non-African Americans > 60 (> 60)
[2020-03-11 03:44] LABS: Magnesium 1.8 mg/dL (1.6-2.6); Phosphorous 5.8 mg/dL (2.7-4.5)
[2020-03-11] MEDS: Ipratropium 1 PUFF INHALER IH SCH ×6 (04:19→23:54)
[2020-03-11] MEDS: Heparin 25,000UNIT/250ML 1/2NS 25,000 UNIT/250 ML IV.SOLN IVC SCH ×2 (04:31→21:41)
[2020-03-11 04:53] LABS: Monocytes # 1.6 K/mcL (0.0-1.3); Neutrophils # 15.9 K/mcL (1.6-8.9)
[2020-03-11 04:54] LABS: Platelet Estimate Normal (Normal)
[2020-03-11 05:08] LABS: Activated Partial Thrombo Time 33.4 Seconds (26.0-36.0)
[2020-03-11] MEDS: Insulin LISPRO 300 UNITS/3 ML VIAL SUBQ SCH ×4 (05:16→23:23)
[2020-03-11] MEDS: Acetaminophen IV 1,000 MG/100 ML BAG IVPB SCH ×2 (06:17→12:00)
[2020-03-11] MEDS: Pantoprazole 40 MG VIAL IVP SCH ×2 (08:30→11:15)
[2020-03-11] MEDS: Furosemide 40 MG/4 ML VIAL IVP SCH ×2 (08:31→19:59)
[2020-03-11] MEDS: cefTRIAXone 1,000 MG in Water for inj. (sterile) 10 ML IVP SCH (08:31)
[2020-03-11] MEDS: Azithromycin 250 MG TABLET PO SCH (08:32)
[2020-03-11] MEDS: tiZANidine 4 MG TABLET PO SCH ×3 (08:32→19:59)
[2020-03-11] MEDS: Pregabalin 75 MG CAPSULE PO SCH ×3 (08:34→19:59)
[2020-03-11] MEDS: *HR* LORazepam 0.5 MG TABLET PO SCH ×2 (08:38→19:58)
[2020-03-11] MEDS: Metoprolol XL (24 HR) Succ 25 MG TAB.ER.24H PO SCH (08:38)
[2020-03-11] MEDS: lamoTRIgine 25 MG TABLET PO SCH (08:38)
[2020-03-11] MEDS: polyethylene glycoL 3350 17 GM POWD.PACK PO SCH (08:38)
[2020-03-11] MEDS: Sennosides/Docusate Sodium TABLET PO SCH (08:38)
[2020-03-11] MEDS: *HR* OxyCODONE/APAP 10/325 TABLET PO PRN (08:44)
[2020-03-11] MEDS: Calcium Gluconate 1gm/50mL 1 GM/50 ML BAG IVPB SCH (12:01)
[2020-03-11] MEDS: *HR* OxyCODONE Immed Rel 15 MG TABLET PO PRN ×2 (14:08→20:30)
[2020-03-11] MEDS ORDERED: Acetaminophen 325 MG TABLET PO PRN (17:30)
[2020-03-11] MEDS: traZODone 50 MG TABLET PO SCH (19:58)
[2020-03-11] MEDS: Remdesivir 100 MG in 0.9 % Sodium Chloride 100 ML IVPB SCH (20:00)
[2020-03-12] MEDS ORDERED: Insulin LISPRO 300 UNITS/3 ML VIAL SUBQ SCH (01:22)
[2020-03-12] MEDS: *HR* OxyCODONE Immed Rel 15 MG TABLET PO PRN ×2 (02:39→12:15)
[2020-03-12] MEDS: Dexmedetomidine HCl 400 MCG/100 ML MLS IVC SCH ×4 (02:46→18:14)
[2020-03-12] MEDS: Ipratropium 1 PUFF INHALER IH SCH ×6 (03:52→23:47)
[2020-03-12 04:21] LABS: VBG Ionized Calcium 0.99 mmol/L (1.15-1.35)
[2020-03-12 04:46] LABS: Hematocrit 36.9 % (35.3-44.9); Hemoglobin 11.8 g/dL (11.5-15.4); Mean Corpuscular Hemoglobin 26.9 pg (28.0-33.3); Mean Corpuscular Volume 84.1 fL (83.0-100.0); Mean Platelet Volume 10.1 fL (9.4-12.4); Platelet Count 403 K/mcL (140-400); Red Blood Count 4.39 M/mcL (3.82-4.97); Red Cell Distribution Width 13.2 % (11.5-14.5); White Blood Count 23.1 K/mcL (4.3-11.1)
[2020-03-12 05:05] LABS: Magnesium 2.2 mg/dL (1.6-2.6); Phosphorous 4.7 mg/dL (2.7-4.5)
[2020-03-12 05:18] LABS: Alanine Aminotransferase 20 Units/L (7-52); Albumin 3.1 g/dL (3.5-5.7); Albumin/Globulin Ratio 0.8 (1.1-2.2); Alkaline Phosphatase 63 Units/L (34-104); Aspartate Amino Transferase 40 Units/L (13-39); BUN/Creatinine Ratio 47 (6-26); Bilirubin,Total 0.3 mg/dL (0.3-1.0); Blood Urea Nitrogen 27 mg/dL (6-20); Calcium 8.5 mg/dL (8.6-10.3); Carbon Dioxide 28 mEq/L (23-29); Chloride 91 mEq/L (98-107); Globulin 3.9 g/dL (2.4-3.5); Glucose 357 mg/dL (70-105); Osmolality,Calculated 289 (280-300); Potassium 4.5 mEq/L (3.5-5.1); Sodium 130 mEq/L (136-145); eGFR For African Americans > 60 (> 60); eGFR For Non-African Americans > 60 (> 60)
[2020-03-12 05:28] LABS: INR 1.5
[2020-03-12 05:34] LABS: Lymphocytes # 3.7 K/mcL (0.6-4.6); Monocytes # 2.3 K/mcL (0.0-1.3); Neutrophils # 14.3 K/mcL (1.6-8.9); Platelet Estimate Normal (Normal); Reactive Lymphocytes Present (Not Present)
[2020-03-12 06:10] LABS: ABG Base Excess 3 mEq/L (-2 to 3); ABG HCO3 27 mEq/L (21-27); ABG Oxygen Saturation 85 % (95-98); ABG PCO2 39 mmHg (35-45); ABG PH 7.45 pH Units (7.32-7.45); ABG PO2 47 mmHg (85-104); ABG TCO2 28 mEq/L (20-26)
[2020-03-12] MEDS: *HR* LORazepam 0.5 MG TABLET PO SCH ×2 (08:44→20:19)
[2020-03-12] MEDS: Pregabalin 75 MG CAPSULE PO SCH ×3 (08:44→20:19)
[2020-03-12] MEDS: Pantoprazole 40 MG VIAL IVP SCH (08:44)
[2020-03-12] MEDS: Sennosides/Docusate Sodium TABLET PO SCH (08:44)
[2020-03-12] MEDS: lamoTRIgine 25 MG TABLET PO SCH (08:44)
[2020-03-12] MEDS: tiZANidine 4 MG TABLET PO SCH ×3 (08:45→20:19)
[2020-03-12] MEDS: polyethylene glycoL 3350 17 GM POWD.PACK PO SCH ×2 (08:51→09:07)
[2020-03-12] MEDS: cefTRIAXone 1,000 MG in Water for inj. (sterile) 10 ML IVP SCH (08:53)
[2020-03-12] MEDS: Furosemide 40 MG/4 ML VIAL IVP SCH ×2 (08:53→20:18)
[2020-03-12] MEDS: Insulin Human Regular 100 UNIT in 0.9 % Sodium Chloride 100 ML IVC SCH (11:01)
[2020-03-12 13:52] LABS: Adenovirus Not Detected (Not Detect); Bordetella Pertussis Not Detected (Not Detect); Chlamydophila pneumoniae Not Detected (Not Detect); Coronavirus 229E Not Detected (Not Detect); Coronavirus HKU1 Not Detected (Not Detect); Coronavirus NL63 Not Detected (Not Detect); Coronavirus OC43 Not Detected (Not Detect); Human Metapneumovirus Not Detected (Not Detect); Human Rhinovirus/Enterovirus Not Detected (Not Detect); Influenza A Subtype 2009 H1 Not Detected (Not Detect); Influenza B Not Detected (Not Detect); Mycoplasma pneumoniae Not Detected (Not Detect); Parainfluenza Virus 1 Not Detected (Not Detect); Parainfluenza Virus 2 Not Detected (Not Detect); Parainfluenza Virus 3 Not Detected (Not Detect); Parainfluenza Virus 4 Not Detected (Not Detect); Respiratory Syncytial Virus Not Detected (Not Detect)
[2020-03-12] MEDS ORDERED: Haloperidol Lactate 5 MG/ML VIAL IVP PRN (16:43)
[2020-03-12] MEDS: Heparin 25,000UNIT/250ML 1/2NS 25,000 UNIT/250 ML IV.SOLN IVC SCH (16:50)
[2020-03-12] MEDS: *HR* OxyCODONE/APAP 10/325 TABLET PO PRN (16:55)
[2020-03-12] MEDS: traZODone 50 MG TABLET PO SCH (20:18)
[2020-03-12] MEDS: Remdesivir 100 MG in 0.9 % Sodium Chloride 100 ML IVPB SCH (21:38)
[2020-03-12] MEDS ORDERED: 0.9 % Sodium Chloride 500 ML ONE (22:58)
[2020-03-13] MEDS: Dexmedetomidine HCl 400 MCG/100 ML MLS IVC SCH ×4 (00:36→22:12)
[2020-03-13] MEDS: Insulin Human Regular 100 UNIT in 0.9 % Sodium Chloride 100 ML IVC SCH ×2 (00:39→21:00)
[2020-03-13] MEDS: *HR* OxyCODONE Immed Rel 15 MG TABLET PO PRN (03:26)
[2020-03-13 03:49] LABS: VBG Ionized Calcium 1.05 mmol/L (1.15-1.35)
[2020-03-13] MEDS: Ipratropium 1 PUFF INHALER IH SCH ×5 (03:51→20:09)
[2020-03-13 03:54] LABS: Red Cell Distribution Width 13.2 % (11.5-14.5)
[2020-03-13 03:55] LABS: Hematocrit 38.2 % (35.3-44.9); Hemoglobin 12.6 g/dL (11.5-15.4); Mean Corpuscular Hemoglobin 27.5 pg (28.0-33.3); Mean Corpuscular Volume 83.2 fL (83.0-100.0); Mean Platelet Volume 9.7 fL (9.4-12.4); Platelet Count 432 K/mcL (140-400); Red Blood Count 4.59 M/mcL (3.82-4.97); White Blood Count 27.9 K/mcL (4.3-11.1)
[2020-03-13 04:03] LABS: INR 1.4
[2020-03-13 04:06] LABS: Activated Partial Thrombo Time 84.7 Seconds (26.0-36.0)
[2020-03-13 04:14] LABS: Alanine Aminotransferase 19 Units/L (7-52); Albumin 3.1 g/dL (3.5-5.7); Albumin/Globulin Ratio 0.8 (1.1-2.2); Alkaline Phosphatase 61 Units/L (34-104); Aspartate Amino Transferase 36 Units/L (13-39); BUN/Creatinine Ratio 47 (6-26); Bilirubin,Total 0.3 mg/dL (0.3-1.0); Blood Urea Nitrogen 29 mg/dL (6-20); Calcium 8.7 mg/dL (8.6-10.3); Carbon Dioxide 28 mEq/L (23-29); Chloride 95 mEq/L (98-107); Globulin 3.8 g/dL (2.4-3.5); Glucose 153 mg/dL (70-105); Magnesium 1.9 mg/dL (1.6-2.6); Osmolality,Calculated 287 (280-300); Phosphorous 5.3 mg/dL (2.7-4.5); Potassium 3.8 mEq/L (3.5-5.1); Sodium 134 mEq/L (136-145); Total Protein 6.9 g/dL (6.4-8.9); eGFR For African Americans > 60 (> 60); eGFR For Non-African Americans > 60 (> 60)
[2020-03-13 04:31] LABS: Lymphocytes # 5.6 K/mcL (0.6-4.6); Monocytes # 0.6 K/mcL (0.0-1.3); Neutrophils # 17.3 K/mcL (1.6-8.9); Platelet Estimate Normal (Normal)
[2020-03-13 04:32] LABS: Reactive Lymphocytes Present (Not Present)
[2020-03-13 04:33] LABS: ABG Base Excess 3 mEq/L (-2 to 3); ABG HCO3 27 mEq/L (21-27); ABG Oxygen Saturation 90 % (95-98); ABG PCO2 38 mmHg (35-45); ABG PH 7.47 pH Units (7.32-7.45); ABG PO2 55 mmHg (85-104); ABG TCO2 28 mEq/L (20-26)
[2020-03-13] MEDS: Furosemide 40 MG/4 ML VIAL IVP SCH ×2 (08:36→20:02)
[2020-03-13] MEDS: cefTRIAXone 1,000 MG in Water for inj. (sterile) 10 ML IVP SCH (08:38)
[2020-03-13] MEDS: lamoTRIgine 25 MG TABLET PO SCH (08:42)
[2020-03-13] MEDS: Cholecalciferol (D-3) 1,000 UNIT (25MCG) TABLET PO SCH (08:43)
[2020-03-13] MEDS: tiZANidine 4 MG TABLET PO SCH ×3 (08:43→20:02)
[2020-03-13] MEDS: Pregabalin 75 MG CAPSULE PO SCH ×3 (08:43→20:02)
[2020-03-13] MEDS: *HR* LORazepam 0.5 MG TABLET PO SCH ×2 (08:43→20:01)
[2020-03-13] MEDS: Sennosides/Docusate Sodium TABLET PO SCH (08:43)
[2020-03-13] MEDS: polyethylene glycoL 3350 17 GM POWD.PACK PO SCH ×2 (08:44→09:51)
[2020-03-13] MEDS: Pantoprazole 40 MG VIAL IVP SCH (08:44)
[2020-03-13] MEDS: Heparin 25,000UNIT/250ML 1/2NS 25,000 UNIT/250 ML IV.SOLN IVC SCH (12:00)
[2020-03-13] MEDS: Calcium Gluconate 1gm/50mL 1 GM/50 ML BAG IVPB SCH (12:27)
[2020-03-13] MEDS: traZODone 50 MG TABLET PO SCH (20:02)
[2020-03-13] MEDS: Remdesivir 100 MG in 0.9 % Sodium Chloride 100 ML IVPB SCH (20:44)
[2020-03-13] MEDS: *HR* OxyCODONE/APAP 10/325 TABLET PO PRN (20:44)
[2020-03-14] MEDS: Ipratropium 1 PUFF INHALER IH SCH ×6 (00:44→20:22)
[2020-03-14 03:28] LABS: VBG Ionized Calcium 1.03 mmol/L (1.15-1.35)
[2020-03-14 03:44] LABS: Hematocrit 38.7 % (35.3-44.9); Mean Platelet Volume 9.7 fL (9.4-12.4); Red Cell Distribution Width 13.2 % (11.5-14.5)
[2020-03-14 03:45] LABS: Hemoglobin 12.6 g/dL (11.5-15.4); Mean Corpuscular HGB Conc 32.6 g/dL (31.6-35.5); Mean Corpuscular Hemoglobin 27.2 pg (28.0-33.3); Mean Corpuscular Volume 83.4 fL (83.0-100.0); Platelet Count 430 K/mcL (140-400); Red Blood Count 4.64 M/mcL (3.82-4.97)
[2020-03-14 03:49] LABS: Magnesium 2.1 mg/dL (1.6-2.6); Phosphorous 5.4 mg/dL (2.7-4.5)
[2020-03-14 03:59] LABS: White Blood Count 35.5 K/mcL (4.3-11.1)
[2020-03-14] MEDS ORDERED: 0.9 % Sodium Chloride 500 ML ONE (04:10)
[2020-03-14] MEDS: *HR* OxyCODONE/APAP 10/325 TABLET PO PRN (04:11)
[2020-03-14 04:32] LABS: Lymphocytes # 4.3 K/mcL (0.6-4.6); Neutrophils # 29.1 K/mcL (1.6-8.9)
[2020-03-14 04:33] LABS: Platelet Estimate Normal (Normal); Reactive Lymphocytes Present (Not Present)
[2020-03-14] MEDS: Dexmedetomidine HCl 400 MCG/100 ML MLS IVC SCH ×3 (04:47→22:56)
[2020-03-14] MEDS: Pantoprazole 40 MG VIAL IVP SCH (08:07)
[2020-03-14] MEDS: tiZANidine 4 MG TABLET PO SCH ×3 (08:11→20:22)
[2020-03-14] MEDS: lamoTRIgine 25 MG TABLET PO SCH (08:11)
[2020-03-14] MEDS: *HR* LORazepam 0.5 MG TABLET PO SCH ×2 (08:12→20:22)
[2020-03-14] MEDS: Pregabalin 75 MG CAPSULE PO SCH ×3 (08:12→20:22)
[2020-03-14] MEDS: Sennosides/Docusate Sodium TABLET PO SCH (08:12)
[2020-03-14] MEDS: Cholecalciferol (D-3) 1,000 UNIT (25MCG) TABLET PO SCH (08:12)
[2020-03-14] MEDS: cefTRIAXone 1,000 MG in Water for inj. (sterile) 10 ML IVP SCH (08:14)
[2020-03-14] MEDS: Furosemide 40 MG/4 ML VIAL IVP SCH ×2 (08:14→20:22)
[2020-03-14] MEDS: polyethylene glycoL 3350 17 GM POWD.PACK PO SCH (08:36)
[2020-03-14] MEDS ORDERED: Dexamethasone Sodium Phos/PF 10 MG/ML VIAL IVP SCH (09:00)
[2020-03-14] MEDS ORDERED: D5% in Water 1,000 ML IVC PRN (09:09)
[2020-03-14] MEDS ORDERED: *HR* Dextrose 50 % in Water (Vial) 50 ML VIAL IVP PRN (09:09)
[2020-03-14] MEDS ORDERED: Dextrose Gel 15 GM/37.5 ML TUBE PO PRN ×2 (09:09)
[2020-03-14] MEDS ORDERED: Insulin DETEMIR 100 UNIT/ML X5UNITS SUBQ SCH (09:15)
[2020-03-14 10:45] LABS: Alanine Aminotransferase 16 Units/L (7-52); Albumin 3.1 g/dL (3.5-5.7); Albumin/Globulin Ratio 0.8 (1.1-2.2); Alkaline Phosphatase 63 Units/L (34-104); Aspartate Amino Transferase 28 Units/L (13-39); BUN/Creatinine Ratio 35 (6-26); Bilirubin,Total 0.4 mg/dL (0.3-1.0); Blood Urea Nitrogen 26 mg/dL (6-20); Calcium 8.6 mg/dL (8.6-10.3); Carbon Dioxide 28 mEq/L (23-29); Chloride 93 mEq/L (98-107); Globulin 4.1 g/dL (2.4-3.5); Glucose 191 mg/dL (70-105); Osmolality,Calculated 286 (280-300); Potassium 3.6 mEq/L (3.5-5.1); Sodium 133 mEq/L (136-145); Total Protein 7.2 g/dL (6.4-8.9); eGFR For African Americans > 60 (> 60); eGFR For Non-African Americans > 60 (> 60)
[2020-03-14] MEDS: Heparin 25,000UNIT/250ML 1/2NS 25,000 UNIT/250 ML IV.SOLN IVC SCH (11:01)
[2020-03-14] MEDS: Insulin LISPRO 300 UNITS/3 ML VIAL SUBQ SCH ×3 (12:30→20:25)
[2020-03-14] MEDS: Remdesivir 100 MG in 0.9 % Sodium Chloride 100 ML IVPB SCH (20:16)
[2020-03-14] MEDS: traZODone 50 MG TABLET PO SCH (20:22)
[2020-03-14] MEDS: Insulin DETEMIR 100 UNIT/ML X5UNITS SUBQ SCH (20:27)
[2020-03-14] MEDS: *HR* OxyCODONE Immed Rel 15 MG TABLET PO PRN (21:04)
[2020-03-14] MEDS: Ondansetron ODT 4 MG TAB.RAPDIS SL PRN (23:04)
[2020-03-15] MEDS: Ipratropium 1 PUFF INHALER IH SCH ×7 (00:01→23:37)
[2020-03-15] MEDS: Insulin LISPRO 300 UNITS/3 ML VIAL SUBQ SCH ×7 (01:18→20:34)
[2020-03-15 04:06] LABS: VBG Ionized Calcium 1.09 mmol/L (1.15-1.35)
[2020-03-15] MEDS ORDERED: Calcium Gluconate 1gm/50mL 1 GM/50 ML BAG IVPB ONE ×2 (04:15→05:46)
[2020-03-15 05:29] LABS: Hemoglobin 13.2 g/dL (11.5-15.4); Mean Corpuscular Hemoglobin 27.6 pg (28.0-33.3); Mean Corpuscular Volume 83.7 fL (83.0-100.0); Mean Platelet Volume 9.9 fL (9.4-12.4); Platelet Count 420 K/mcL (140-400); Red Blood Count 4.78 M/mcL (3.82-4.97); Red Cell Distribution Width 13.2 % (11.5-14.5)
[2020-03-15 05:31] LABS: VBG Ionized Calcium 1.05 mmol/L (1.15-1.35)
[2020-03-15 05:35] LABS: White Blood Count 43.7 K/mcL (4.3-11.1)
[2020-03-15 05:43] LABS: Alanine Aminotransferase 11 Units/L (7-52); Albumin/Globulin Ratio 0.8 (1.1-2.2); Alkaline Phosphatase 57 Units/L (34-104); Aspartate Amino Transferase 19 Units/L (13-39); BUN/Creatinine Ratio 43 (6-26); Bilirubin,Total 0.5 mg/dL (0.3-1.0); Blood Urea Nitrogen 29 mg/dL (6-20); Calcium 8.3 mg/dL (8.6-10.3); Carbon Dioxide 28 mEq/L (23-29); Chloride 97 mEq/L (98-107); Globulin 3.8 g/dL (2.4-3.5); Glucose 140 mg/dL (70-105); Magnesium 2.1 mg/dL (1.6-2.6); Osmolality,Calculated 288 (280-300); Phosphorous 4.6 mg/dL (2.7-4.5); Potassium 3.5 mEq/L (3.5-5.1); Sodium 135 mEq/L (136-145); Total Protein 6.8 g/dL (6.4-8.9); eGFR For African Americans > 60 (> 60); eGFR For Non-African Americans > 60 (> 60)
[2020-03-15 06:02] LABS: Lymphocytes # 6.1 K/mcL (0.6-4.6); Monocytes # 2.6 K/mcL (0.0-1.3); Neutrophils # 34.1 K/mcL (1.6-8.9)
[2020-03-15 06:03] LABS: Reactive Lymphocytes Present (Not Present); Smudge Cells Present (Not Present)
[2020-03-15] MEDS: polyethylene glycoL 3350 17 GM POWD.PACK PO SCH ×2 (09:00→10:14)
[2020-03-15] MEDS: Ondansetron ODT 4 MG TAB.RAPDIS SL PRN (09:10)
[2020-03-15] MEDS: Pantoprazole 40 MG VIAL IVP SCH (10:14)
[2020-03-15] MEDS: *HR* OxyCODONE/APAP 10/325 TABLET PO PRN (10:14)
[2020-03-15] MEDS: Furosemide 40 MG/4 ML VIAL IVP SCH ×2 (10:15→20:12)
[2020-03-15] MEDS: cefTRIAXone 1,000 MG in Water for inj. (sterile) 10 ML IVP SCH (10:15)
[2020-03-15] MEDS: Pregabalin 75 MG CAPSULE PO SCH ×3 (10:16→20:13)
[2020-03-15] MEDS: tiZANidine 4 MG TABLET PO SCH ×3 (10:16→20:13)
[2020-03-15] MEDS: Dexamethasone Sodium Phos/PF 10 MG/ML VIAL IVP SCH (10:16)
[2020-03-15] MEDS: Cholecalciferol (D-3) 1,000 UNIT (25MCG) TABLET PO SCH (10:16)
[2020-03-15] MEDS: Sennosides/Docusate Sodium TABLET PO SCH (10:16)
[2020-03-15] MEDS: lamoTRIgine 25 MG TABLET PO SCH (10:16)
[2020-03-15] MEDS: *HR* LORazepam 0.5 MG TABLET PO SCH ×2 (10:18→20:12)
[2020-03-15] MEDS: Insulin DETEMIR 100 UNIT/ML X5UNITS SUBQ SCH ×2 (10:23→20:34)
[2020-03-15] MEDS: Calcium Gluconate 1gm/50mL 1 GM/50 ML BAG IVPB SCH ×2 (11:41→12:24)
[2020-03-15] MEDS: Dexmedetomidine HCl 400 MCG/100 ML MLS IVC SCH ×2 (11:41→22:34)
[2020-03-15 12:35] LABS: Activated Partial Thrombo Time 41.1 Seconds (26.0-36.0)
[2020-03-15] MEDS: Heparin 25,000UNIT/250ML 1/2NS 25,000 UNIT/250 ML IV.SOLN IVC SCH (12:44)
[2020-03-15] MEDS: Remdesivir 100 MG in 0.9 % Sodium Chloride 100 ML IVPB SCH (20:12)
[2020-03-15] MEDS: traZODone 50 MG TABLET PO SCH (20:13)
[2020-03-16] MEDS: Insulin LISPRO 300 UNITS/3 ML VIAL SUBQ SCH ×7 (00:08→23:56)
[2020-03-16] MEDS: Heparin 25,000UNIT/250ML 1/2NS 25,000 UNIT/250 ML IV.SOLN IVC SCH ×3 (00:08→10:36)
[2020-03-16] MEDS: Ipratropium 1 PUFF INHALER IH SCH ×6 (04:05→23:44)
[2020-03-16 06:01] LABS: Mean Platelet Volume 9.6 fL (9.4-12.4)
[2020-03-16 06:02] LABS: VBG Ionized Calcium 1.04 mmol/L (1.15-1.35)
[2020-03-16 06:03] LABS: Hematocrit 42.7 % (35.3-44.9); Mean Corpuscular HGB Conc 32.8 g/dL (31.6-35.5); Mean Corpuscular Hemoglobin 27.5 pg (28.0-33.3); Mean Corpuscular Volume 83.7 fL (83.0-100.0); Platelet Count 405 K/mcL (140-400); Red Cell Distribution Width 13.2 % (11.5-14.5)
[2020-03-16 06:14] LABS: White Blood Count 47.9 K/mcL (4.3-11.1)
[2020-03-16 06:18] LABS: Alanine Aminotransferase 13 Units/L (7-52); Albumin 3.3 g/dL (3.5-5.7); Albumin/Globulin Ratio 0.9 (1.1-2.2); Alkaline Phosphatase 68 Units/L (34-104); Aspartate Amino Transferase 21 Units/L (13-39); BUN/Creatinine Ratio 42 (6-26); Bilirubin,Total 0.4 mg/dL (0.3-1.0); Blood Urea Nitrogen 28 mg/dL (6-20); Carbon Dioxide 29 mEq/L (23-29); Chloride 94 mEq/L (98-107); Globulin 3.7 g/dL (2.4-3.5); Glucose 103 mg/dL (70-105); Magnesium 1.9 mg/dL (1.6-2.6); Osmolality,Calculated 286 (280-300); Phosphorous 4.3 mg/dL (2.7-4.5); Potassium 3.3 mEq/L (3.5-5.1); Sodium 135 mEq/L (136-145); eGFR For African Americans > 60 (> 60); eGFR For Non-African Americans > 60 (> 60)
[2020-03-16 06:30] LABS: Anisocytosis 1+ (Not Present); Lymphocytes # 4.8 K/mcL (0.6-4.6); Monocytes # 2.9 K/mcL (0.0-1.3); Neutrophils # 34.5 K/mcL (1.6-8.9); Platelet Estimate Normal (Normal); Reactive Lymphocytes Present (Not Present)
[2020-03-16] MEDS: Furosemide 40 MG/4 ML VIAL IVP SCH ×2 (08:22→20:13)
[2020-03-16] MEDS: cefTRIAXone 1,000 MG in Water for inj. (sterile) 10 ML IVP SCH (08:22)
[2020-03-16] MEDS: Pantoprazole 40 MG VIAL IVP SCH (08:22)
[2020-03-16] MEDS: Cholecalciferol (D-3) 1,000 UNIT (25MCG) TABLET PO SCH (08:23)
[2020-03-16] MEDS: Dexamethasone Sodium Phos/PF 10 MG/ML VIAL IVP SCH (08:23)
[2020-03-16] MEDS: Sennosides/Docusate Sodium TABLET PO SCH (08:23)
[2020-03-16] MEDS: tiZANidine 4 MG TABLET PO SCH ×3 (08:23→20:14)
[2020-03-16] MEDS: lamoTRIgine 25 MG TABLET PO SCH (08:23)
[2020-03-16] MEDS: polyethylene glycoL 3350 17 GM POWD.PACK PO SCH (08:24)
[2020-03-16] MEDS: Ondansetron ODT 4 MG TAB.RAPDIS SL PRN (08:28)
[2020-03-16] MEDS: *HR* OxyCODONE/APAP 10/325 TABLET PO PRN (08:28)
[2020-03-16] MEDS: Insulin DETEMIR 100 UNIT/ML X5UNITS SUBQ SCH ×2 (09:00→20:15)
[2020-03-16] MEDS: Dexmedetomidine HCl 400 MCG/100 ML MLS IVC SCH ×2 (09:07→21:44)
[2020-03-16 11:02] LABS: Prealbumin 21.1 mg/dL (17.0-34.0); Procalcitonin 0.05 ng/mL (0.00-0.15)
[2020-03-16] MEDS ORDERED: Calcium Gluconate 1gm/50mL 1 GM/50 ML BAG IVPB ONE (12:00)
[2020-03-16] MEDS ORDERED: Metoclopramide 10 MG/2 ML VIAL IVP SCH (12:00)
[2020-03-16] MEDS: Ondansetron 4 MG/2 ML VIAL IVP SCH ×3 (12:12→23:46)
[2020-03-16] MEDS ORDERED: Potassium Chloride 20 MEQ, Lidocaine 1% 2 ML in 0.9 % Sodium Chloride 250 ML IVPB ONE (15:45)
[2020-03-16] MEDS: Pregabalin 75 MG CAPSULE PO SCH ×2 (17:39→20:18)
[2020-03-16] MEDS: Remdesivir 100 MG in 0.9 % Sodium Chloride 100 ML IVPB SCH (20:11)
[2020-03-16] MEDS: traZODone 50 MG TABLET PO SCH (20:14)
[2020-03-16] MEDS: *HR* OxyCODONE Immed Rel 15 MG TABLET PO PRN (20:15)
[2020-03-16] MEDS: *HR* Heparin 5,000 UNIT/ML VIAL IVP PRN (21:49)
[2020-03-17] MEDS: *HR* OxyCODONE/APAP 10/325 TABLET PO PRN (03:51)
[2020-03-17] MEDS: Insulin LISPRO 300 UNITS/3 ML VIAL SUBQ SCH ×5 (03:52→20:33)
[2020-03-17] MEDS: Ipratropium 1 PUFF INHALER IH SCH ×6 (04:06→23:42)
[2020-03-17 04:15] LABS: Hematocrit 39.5 % (35.3-44.9); Hemoglobin 12.8 g/dL (11.5-15.4); Mean Corpuscular HGB Conc 32.4 g/dL (31.6-35.5); Mean Corpuscular Hemoglobin 27.5 pg (28.0-33.3); Mean Corpuscular Volume 84.8 fL (83.0-100.0); Mean Platelet Volume 9.9 fL (9.4-12.4); Monocytes # 1.8 K/mcL (0.0-1.3); Platelet Count 369 K/mcL (140-400); Red Blood Count 4.66 M/mcL (3.82-4.97); Red Cell Distribution Width 13.4 % (11.5-14.5)
[2020-03-17 04:27] LABS: Magnesium 1.8 mg/dL (1.6-2.6); Phosphorous 3.1 mg/dL (2.7-4.5)
[2020-03-17 04:29] LABS: Alanine Aminotransferase 11 Units/L (7-52); Albumin/Globulin Ratio 0.9 (1.1-2.2); Alkaline Phosphatase 76 Units/L (34-104); Aspartate Amino Transferase 22 Units/L (13-39); BUN/Creatinine Ratio 34 (6-26); Bilirubin,Total 0.3 mg/dL (0.3-1.0); Blood Urea Nitrogen 21 mg/dL (6-20); Calcium 8.2 mg/dL (8.6-10.3); Carbon Dioxide 29 mEq/L (23-29); Chloride 97 mEq/L (98-107); Globulin 3.4 g/dL (2.4-3.5); Glucose 166 mg/dL (70-105); Osmolality,Calculated 283 (280-300); Potassium 3.8 mEq/L (3.5-5.1); Sodium 133 mEq/L (136-145); Total Protein 6.4 g/dL (6.4-8.9); eGFR For African Americans > 60 (> 60); eGFR For Non-African Americans > 60 (> 60)
[2020-03-17 04:31] LABS: VBG Ionized Calcium 1.07 mmol/L (1.15-1.35)
[2020-03-17 04:38] LABS: White Blood Count 44.6 K/mcL (4.3-11.1)
[2020-03-17 04:47] LABS: ABG Base Excess 3 mEq/L (-2 to 3); ABG HCO3 31 mEq/L (21-27); ABG Oxygen Saturation 96 % (95-98); ABG PCO2 65 mmHg (35-45); ABG PH 7.29 pH Units (7.32-7.45); ABG PO2 95 mmHg (85-104); ABG TCO2 33 mEq/L (20-26); Blood Gas Modality ASSIST CONTROL; Blood Gas VT 380 cc
[2020-03-17 05:11] LABS: Lymphocytes # 3.6 K/mcL (0.6-4.6); Neutrophils # 37.5 K/mcL (1.6-8.9); Platelet Estimate Normal (Normal)
[2020-03-17] MEDS: Dexmedetomidine HCl 400 MCG/100 ML MLS IVC SCH ×2 (05:37→15:49)
[2020-03-17] MEDS: Heparin 25,000UNIT/250ML 1/2NS 25,000 UNIT/250 ML IV.SOLN IVC SCH (06:11)
[2020-03-17] MEDS: Ondansetron 4 MG/2 ML VIAL IVP SCH ×3 (06:14→17:08)
[2020-03-17] MEDS: Insulin DETEMIR 100 UNIT/ML X5UNITS SUBQ SCH ×2 (09:22→20:32)
[2020-03-17] MEDS: polyethylene glycoL 3350 17 GM POWD.PACK PO SCH (09:31)
[2020-03-17] MEDS: Sennosides/Docusate Sodium TABLET PO SCH (09:31)
[2020-03-17] MEDS: tiZANidine 4 MG TABLET PO SCH ×3 (09:32→20:32)
[2020-03-17] MEDS: Dexamethasone Sodium Phos/PF 10 MG/ML VIAL IVP SCH (09:33)
[2020-03-17] MEDS: Pregabalin 75 MG CAPSULE PO SCH ×3 (09:33→20:32)
[2020-03-17] MEDS: lamoTRIgine 25 MG TABLET PO SCH (09:33)
[2020-03-17] MEDS: Furosemide 40 MG/4 ML VIAL IVP SCH ×2 (09:33→20:32)
[2020-03-17] MEDS: Cholecalciferol (D-3) 1,000 UNIT (25MCG) TABLET PO SCH (09:33)
[2020-03-17] MEDS: Pantoprazole 40 MG VIAL IVP SCH (09:34)
[2020-03-17 16:52] LABS: BUN/Creatinine Ratio 30 (6-26); Blood Urea Nitrogen 21 mg/dL (6-20); Calcium 8.1 mg/dL (8.6-10.3); Carbon Dioxide 28 mEq/L (23-29); Chloride 94 mEq/L (98-107); Glucose 393 mg/dL (70-105); Osmolality,Calculated 289 (280-300); Potassium 4.6 mEq/L (3.5-5.1); Sodium 130 mEq/L (136-145); eGFR For African Americans > 60 (> 60); eGFR For Non-African Americans > 60 (> 60)
[2020-03-17] MEDS: *HR* OxyCODONE Immed Rel 15 MG TABLET PO PRN (17:56)
[2020-03-17] MEDS: Remdesivir 100 MG in 0.9 % Sodium Chloride 100 ML IVPB SCH (19:46)
[2020-03-17] MEDS: traZODone 50 MG TABLET PO SCH (20:32)
[2020-03-17] MEDS: *HR* Heparin 5,000 UNIT/ML VIAL IVP PRN (21:43)
[2020-03-18] MEDS: Insulin LISPRO 300 UNITS/3 ML VIAL SUBQ SCH ×6 (00:19→20:00)
[2020-03-18] MEDS: Ondansetron 4 MG/2 ML VIAL IVP SCH ×3 (00:19→11:16)
[2020-03-18] MEDS: Dexmedetomidine HCl 400 MCG/100 ML MLS IVC SCH ×3 (00:34→16:30)
[2020-03-18] MEDS: *HR* OxyCODONE Immed Rel 15 MG TABLET PO PRN (03:13)
[2020-03-18] MEDS: Ipratropium 1 PUFF INHALER IH SCH ×6 (03:27→23:51)
[2020-03-18 03:39] LABS: Mean Corpuscular HGB Conc 32.6 g/dL (31.6-35.5); Mean Corpuscular Hemoglobin 27.5 pg (28.0-33.3); Mean Platelet Volume 10.1 fL (9.4-12.4)
[2020-03-18 03:40] LABS: Hematocrit 39.3 % (35.3-44.9); Hemoglobin 12.8 g/dL (11.5-15.4); Mean Corpuscular Volume 84.3 fL (83.0-100.0); Platelet Count 336 K/mcL (140-400); Red Blood Count 4.66 M/mcL (3.82-4.97); Red Cell Distribution Width 13.5 % (11.5-14.5)
[2020-03-18 03:46] LABS: White Blood Count 41.3 K/mcL (4.3-11.1)
[2020-03-18 03:51] LABS: BUN/Creatinine Ratio 29 (6-26); Blood Urea Nitrogen 18 mg/dL (6-20); Calcium 8.5 mg/dL (8.6-10.3); Carbon Dioxide 32 mEq/L (23-29); Chloride 94 mEq/L (98-107); Glucose 282 mg/dL (70-105); Osmolality,Calculated 286 (280-300); Potassium 4.4 mEq/L (3.5-5.1); Sodium 132 mEq/L (136-145); eGFR For African Americans > 60 (> 60); eGFR For Non-African Americans > 60 (> 60)
[2020-03-18 04:27] LABS: Lymphocytes # 2.5 K/mcL (0.6-4.6); Neutrophils # 34.7 K/mcL (1.6-8.9)
[2020-03-18 04:28] LABS: Platelet Estimate Normal (Normal)
[2020-03-18] MEDS ORDERED: Ketorolac 30 MG/ML VIAL IM ONE (04:53)
[2020-03-18] MEDS: Heparin 25,000UNIT/250ML 1/2NS 25,000 UNIT/250 ML IV.SOLN IVC SCH (05:30)
[2020-03-18] MEDS: Pantoprazole 40 MG VIAL IVP SCH (07:50)
[2020-03-18] MEDS: Dexamethasone Sodium Phos/PF 10 MG/ML VIAL IVP SCH (07:50)
[2020-03-18] MEDS: Furosemide 40 MG/4 ML VIAL IVP SCH ×2 (07:50→19:52)
[2020-03-18] MEDS: Pregabalin 75 MG CAPSULE PO SCH ×3 (07:51→19:54)
[2020-03-18] MEDS: tiZANidine 4 MG TABLET PO SCH ×3 (07:51→19:53)
[2020-03-18] MEDS: Sennosides/Docusate Sodium TABLET PO SCH (07:51)
[2020-03-18] MEDS: lamoTRIgine 25 MG TABLET PO SCH (07:52)
[2020-03-18] MEDS: Cholecalciferol (D-3) 1,000 UNIT (25MCG) TABLET PO SCH (07:52)
[2020-03-18] MEDS: Insulin DETEMIR 100 UNIT/ML X5UNITS SUBQ SCH ×2 (08:53→20:01)
[2020-03-18] MEDS: polyethylene glycoL 3350 17 GM POWD.PACK PO SCH (08:53)
[2020-03-18] MEDS ORDERED: Acetaminophen IV 1,000 MG/100 ML BAG IVPB ONE (09:06)
[2020-03-18] MEDS: Carbamide Peroxide 150 DROP/15 ML BOTTLE RIGHT EAR SCH ×2 (11:12→21:00)
[2020-03-18 12:15] LABS: Alanine Aminotransferase 11 Units/L (7-52); Albumin 3.2 g/dL (3.5-5.7); Albumin/Globulin Ratio 0.9 (1.1-2.2); Alkaline Phosphatase 129 Units/L (34-104); Aspartate Amino Transferase 24 Units/L (13-39); BUN/Creatinine Ratio 31 (6-26); Bilirubin,Total 0.4 mg/dL (0.3-1.0); Blood Urea Nitrogen 20 mg/dL (6-20); Calcium 8.9 mg/dL (8.6-10.3); Carbon Dioxide 32 mEq/L (23-29); Chloride 94 mEq/L (98-107); Globulin 3.5 g/dL (2.4-3.5); Glucose 105 mg/dL (70-105); Osmolality,Calculated 281 (280-300); Potassium 4.2 mEq/L (3.5-5.1); Sodium 134 mEq/L (136-145); Total Protein 6.7 g/dL (6.4-8.9); eGFR For African Americans > 60 (> 60); eGFR For Non-African Americans > 60 (> 60)
[2020-03-18] MEDS: traZODone 50 MG TABLET PO SCH (19:53)
[2020-03-18] MEDS: Remdesivir 100 MG in 0.9 % Sodium Chloride 100 ML IVPB SCH (20:00)
[2020-03-19] MEDS: Insulin LISPRO 300 UNITS/3 ML VIAL SUBQ SCH ×6 (00:06→20:52)
[2020-03-19] MEDS: *HR* OxyCODONE Immed Rel 15 MG TABLET PO PRN ×2 (00:16→10:56)
[2020-03-19] MEDS: Heparin 25,000UNIT/250ML 1/2NS 25,000 UNIT/250 ML IV.SOLN IVC SCH ×3 (02:12→11:22)
[2020-03-19] MEDS: Dexmedetomidine HCl 400 MCG/100 ML MLS IVC SCH ×3 (02:25→16:18)
[2020-03-19 04:25] LABS: Hemoglobin 13.5 g/dL (11.5-15.4)
[2020-03-19 04:26] LABS: Hematocrit 41.9 % (35.3-44.9); Mean Corpuscular HGB Conc 32.2 g/dL (31.6-35.5); Mean Corpuscular Hemoglobin 27.3 pg (28.0-33.3); Mean Corpuscular Volume 84.6 fL (83.0-100.0); Mean Platelet Volume 10.6 fL (9.4-12.4); Platelet Count 329 K/mcL (140-400); Red Blood Count 4.95 M/mcL (3.82-4.97); Red Cell Distribution Width 13.5 % (11.5-14.5)
[2020-03-19 04:33] LABS: White Blood Count 40.9 K/mcL (4.3-11.1)
[2020-03-19 04:43] LABS: Alanine Aminotransferase 14 Units/L (7-52); Albumin 3.2 g/dL (3.5-5.7); Albumin/Globulin Ratio 0.9 (1.1-2.2); Alkaline Phosphatase 133 Units/L (34-104); Aspartate Amino Transferase 20 Units/L (13-39); BUN/Creatinine Ratio 39 (6-26); Bilirubin,Total 0.4 mg/dL (0.3-1.0); Blood Urea Nitrogen 26 mg/dL (6-20); Calcium 8.8 mg/dL (8.6-10.3); Carbon Dioxide 30 mEq/L (23-29); Chloride 93 mEq/L (98-107); Globulin 3.6 g/dL (2.4-3.5); Glucose 241 mg/dL (70-105); Osmolality,Calculated 291 (280-300); Potassium 4.3 mEq/L (3.5-5.1); Sodium 134 mEq/L (136-145); Total Protein 6.8 g/dL (6.4-8.9); eGFR For African Americans > 60 (> 60); eGFR For Non-African Americans > 60 (> 60)
[2020-03-19] MEDS: Ipratropium 1 PUFF INHALER IH SCH ×5 (04:56→19:45)
[2020-03-19 04:59] LABS: Anisocytosis 1+ (Not Present); Lymphocytes # 4.1 K/mcL (0.6-4.6); Monocytes # 1.6 K/mcL (0.0-1.3); Neutrophils # 30.3 K/mcL (1.6-8.9); Platelet Estimate Normal (Normal); Reactive Lymphocytes Present (Not Present)
[2020-03-19] MEDS: Furosemide 40 MG/4 ML VIAL IVP SCH ×2 (08:58→20:51)
[2020-03-19] MEDS: Pantoprazole 40 MG VIAL IVP SCH (08:58)
[2020-03-19] MEDS: Dexamethasone Sodium Phos/PF 10 MG/ML VIAL IVP SCH (08:58)
[2020-03-19] MEDS: polyethylene glycoL 3350 17 GM POWD.PACK PO SCH ×2 (08:59→09:31)
[2020-03-19] MEDS: Insulin DETEMIR 100 UNIT/ML X5UNITS SUBQ SCH ×2 (08:59→21:03)
[2020-03-19] MEDS: Cholecalciferol (D-3) 1,000 UNIT (25MCG) TABLET PO SCH (09:00)
[2020-03-19] MEDS: Sennosides/Docusate Sodium TABLET PO SCH (09:00)
[2020-03-19] MEDS: Pregabalin 75 MG CAPSULE PO SCH (09:00)
[2020-03-19] MEDS: tiZANidine 4 MG TABLET PO SCH (09:01)
[2020-03-19] MEDS: lamoTRIgine 25 MG TABLET PO SCH (09:01)
[2020-03-19] MEDS: Carbamide Peroxide 150 DROP/15 ML BOTTLE RIGHT EAR SCH ×2 (09:31→21:00)
[2020-03-19] MEDS: Ondansetron ODT 4 MG TAB.RAPDIS SL PRN (10:56)
[2020-03-19] MEDS ORDERED: *HR* Etomidate 20 MG/10 ML AMPUL IVP ONE (11:00)
[2020-03-19] MEDS ORDERED: *HR* Succinylcholine 200 MG/10 ML VIAL IVP ONE (11:00)
[2020-03-19] MEDS ORDERED: *HR* Midazolam HCl 5 MG/5 ML VIAL IVP ONE (11:00)
[2020-03-19] MEDS ORDERED: *HR* Propofol 200 MG/20 ML VIAL IVP ONE (11:00)
[2020-03-19] MEDS ORDERED: *HR* LORazepam 2 MG/ML VIAL IVP ONE (11:37)
[2020-03-19] MEDS ORDERED: *HR* LORazepam 2 MG/ML VIAL ONE (11:38)
[2020-03-19] MEDS ORDERED: 0.9 % Sodium Chloride 500 ML ONE (12:42)
[2020-03-19] MEDS ORDERED: FentaNYL (PF) 1,000 MCG/100 ML IV.SOLN IVC SCH (12:45)
[2020-03-19] MEDS: Cisatracurium 200 MG in 0.9 % Sodium Chloride 180 ML IVC SCH ×2 (13:25→23:06)
[2020-03-19] MEDS: Midazolam HCl 50 MG/100 ML IV.SOLN IVC SCH ×3 (13:25→21:26)
[2020-03-19] MEDS: Phenylephrine 20 MG in 0.9 % Sodium Chloride 250 ML IVC SCH ×3 (13:50→22:28)
[2020-03-19] MEDS ORDERED: Artificial Tears SOLN 15 ML BOTTLE BOTH EYES PRN (13:59)
[2020-03-19 14:11] LABS: ABG Base Excess 8 mEq/L (-2 to 3); ABG HCO3 37 mEq/L (21-27); ABG Oxygen Saturation 93 % (95-98); ABG PCO2 75 mmHg (35-45); ABG PH 7.31 pH Units (7.32-7.45); ABG PO2 79 mmHg (85-104); ABG TCO2 40 mEq/L (20-26); Blood Gas VT 380 cc
[2020-03-19] MEDS: Norepinephrine 4 MG/254 ML IV.SOLN IVC SCH (16:18)
[2020-03-19] MEDS: Artificial Tears SOLN 15 ML BOTTLE BOTH EYES SCH ×2 (16:24→20:52)
[2020-03-19] MEDS: Chlorhexidine Rinse 15 ML MOUTHWASH MM SCH ×2 (16:24→20:49)
[2020-03-19] MEDS: FentaNYL (PF) 2,500 MCG/50 ML IV.SOLN IVC SCH (17:00)
[2020-03-19 17:33] LABS: BUN/Creatinine Ratio 51 (6-26); Blood Urea Nitrogen 32 mg/dL (6-20); Calcium 8.5 mg/dL (8.6-10.3); Carbon Dioxide 32 mEq/L (23-29); Chloride 94 mEq/L (98-107); Glucose 188 mg/dL (70-105); Osmolality,Calculated 292 (280-300); Potassium 4.4 mEq/L (3.5-5.1); Sodium 135 mEq/L (136-145); eGFR For African Americans > 60 (> 60); eGFR For Non-African Americans > 60 (> 60)
[2020-03-19] MEDS: Docusate Oral Soln 100 MG/10 ML UDC GTUBE SCH (20:49)
[2020-03-19] MEDS: Remdesivir 100 MG in 0.9 % Sodium Chloride 100 ML IVPB SCH (21:44)
[2020-03-19 23:35] LABS: Bilirubin,Urine Negative (Negative); Blood,Urine Negative (Negative); Clarity,Urine Clear (Clear); Color,Urine Light-Yellow (Yellow); Glucose,Urine (UA) Normal (Normal); Ketones,Urine Negative (Negative); Leukocyte Esterase,Urine Negative (Negative); Nitrite,Urine Negative (Negative); Protein,Urine Trace mg/dL (Neg-Trace); Specific Gravity,Urine 1.027 (1.010-1.025); Urobilinogen,Urine Normal (Normal)
[2020-03-20] MEDS: Ipratropium 1 PUFF INHALER IH SCH ×7 (00:10→23:07)
[2020-03-20] MEDS: Cefepime HCl 2,000 MG in 0.9 % Sodium Chloride Mini Bag 100 ML IVPB SCH ×3 (00:27→16:18)
[2020-03-20] MEDS: Artificial Tears SOLN 15 ML BOTTLE BOTH EYES SCH ×6 (00:28→20:23)
[2020-03-20] MEDS: Insulin LISPRO 300 UNITS/3 ML VIAL SUBQ SCH ×6 (01:06→20:24)
[2020-03-20] MEDS: Heparin 25,000UNIT/250ML 1/2NS 25,000 UNIT/250 ML IV.SOLN IVC SCH (01:07)
[2020-03-20] MEDS: Midazolam HCl 50 MG/100 ML IV.SOLN IVC SCH ×4 (02:26→18:41)
[2020-03-20] MEDS: Phenylephrine 20 MG in 0.9 % Sodium Chloride 250 ML IVC SCH ×4 (02:30→20:43)
[2020-03-20 04:05] LABS: ABG Base Excess 5 mEq/L (-2 to 3); ABG HCO3 33 mEq/L (21-27); ABG Oxygen Saturation 99 % (95-98); ABG PCO2 62 mmHg (35-45); ABG PH 7.34 pH Units (7.32-7.45); ABG PO2 153 mmHg (85-104); ABG TCO2 35 mEq/L (20-26); Blood Gas VT 380 cc
[2020-03-20 04:56] LABS: ABG Ionized Calcium 1.07 mmol/L (1.15-1.35)
[2020-03-20 04:59] LABS: Hematocrit 39.7 % (35.3-44.9); Hemoglobin 12.7 g/dL (11.5-15.4); Mean Corpuscular Hemoglobin 27.7 pg (28.0-33.3); Mean Corpuscular Volume 86.5 fL (83.0-100.0); Mean Platelet Volume 10.5 fL (9.4-12.4); Platelet Count 333 K/mcL (140-400); Red Blood Count 4.59 M/mcL (3.82-4.97); Red Cell Distribution Width 14.2 % (11.5-14.5)
[2020-03-20 05:12] LABS: Magnesium 1.6 mg/dL (1.6-2.6); Phosphorous 3.7 mg/dL (2.7-4.5)
[2020-03-20 05:20] LABS: White Blood Count 54.5 K/mcL (4.3-11.1)
[2020-03-20] MEDS: FentaNYL (PF) 2,500 MCG/50 ML IV.SOLN IVC SCH ×2 (05:30→16:11)
[2020-03-20 05:51] LABS: Lymphocytes # 2.2 K/mcL (0.6-4.6); Neutrophils # 45.8 K/mcL (1.6-8.9)
[2020-03-20 05:52] LABS: Anisocytosis 1+ (Not Present); Platelet Estimate Normal (Normal)
[2020-03-20 07:07] LABS: BUN/Creatinine Ratio 44 (6-26); Blood Urea Nitrogen 21 mg/dL (6-20); Calcium 6.7 mg/dL (8.6-10.3); Carbon Dioxide 26 mEq/L (23-29); Chloride 105 mEq/L (98-107); Glucose 145 mg/dL (70-105); Osmolality,Calculated 294 (280-300); Potassium 3.4 mEq/L (3.5-5.1); Sodium 139 mEq/L (136-145); eGFR For African Americans > 60 (> 60); eGFR For Non-African Americans > 60 (> 60)
[2020-03-20] MEDS: MetroNIDAZOLE 500 MG/100 ML 500 MG/100 ML BAG IVPB SCH ×3 (08:56→20:13)
[2020-03-20] MEDS: Carbamide Peroxide 150 DROP/15 ML BOTTLE RIGHT EAR SCH ×2 (09:00→20:24)
[2020-03-20] MEDS: Cholecalciferol (D-3) 1,000 UNIT (25MCG) TABLET PO SCH (09:09)
[2020-03-20] MEDS: Chlorhexidine Rinse 15 ML MOUTHWASH MM SCH ×2 (09:09→20:12)
[2020-03-20] MEDS: Docusate Oral Soln 100 MG/10 ML UDC GTUBE SCH ×2 (09:09→20:12)
[2020-03-20] MEDS: Pregabalin 75 MG CAPSULE GTUBE SCH ×3 (09:09→20:12)
[2020-03-20] MEDS: Furosemide 40 MG/4 ML VIAL IVP SCH ×2 (09:10→20:12)
[2020-03-20] MEDS: Dexamethasone Sodium Phos/PF 10 MG/ML VIAL IVP SCH (09:10)
[2020-03-20] MEDS: Pantoprazole 40 MG VIAL IVP SCH (09:11)
[2020-03-20] MEDS: lamoTRIgine 25 MG TABLET GTUBE SCH (09:13)
[2020-03-20] MEDS: Dexmedetomidine HCl 400 MCG/100 ML MLS IVC SCH (09:55)
[2020-03-20] MEDS: Insulin DETEMIR 100 UNIT/ML X5UNITS SUBQ SCH ×2 (09:57→20:25)
[2020-03-20] MEDS: Pregabalin 75 MG CAPSULE PO SCH (10:10)
[2020-03-20] MEDS: tiZANidine 4 MG TABLET PO SCH (10:10)
[2020-03-20] MEDS ORDERED: Potassium Chloride Elixir 20 MEQ/15 ML UDC GTUBE ONE (11:28)
[2020-03-20 12:21] LABS: INR 1.3; Prothrombin Time 14.6 Seconds (9.4-12.1)
[2020-03-20 12:41] LABS: Activated Partial Thrombo Time 140.2 Seconds (26.0-36.0)
[2020-03-20] MEDS: Calcium Gluconate 1gm/50mL 1 GM/50 ML BAG IVPB SCH ×2 (14:12→18:06)
[2020-03-20] MEDS: Norepinephrine 4 MG/254 ML IV.SOLN IVC SCH (14:13)
[2020-03-20 16:48] LABS: Alanine Aminotransferase 11 Units/L (7-52); Albumin 3.1 g/dL (3.5-5.7); Alkaline Phosphatase 85 Units/L (34-104); Aspartate Amino Transferase 20 Units/L (13-39); Bilirubin,Direct 0.1 mg/dL (0.0-0.2); Bilirubin,Indirect 0.3 mg/dL (0.0-1.0); Bilirubin,Total 0.4 mg/dL (0.3-1.0); C-Reactive Protein 19 mg/L (Less than 10); Globulin 3.2 g/dL (2.4-3.5); Lactate Dehydrogenase 430 Units/L (140-271); Total Protein 6.3 g/dL (6.4-8.9); Troponin I < 0.03 ng/mL (< 0.04)
[2020-03-20 17:02] LABS: Ferritin 134 ng/mL (10-120)
[2020-03-21] MEDS: Midazolam HCl 50 MG/100 ML IV.SOLN IVC SCH ×3 (00:15→09:58)
[2020-03-21] MEDS: Artificial Tears SOLN 15 ML BOTTLE BOTH EYES SCH ×3 (00:39→08:31)
[2020-03-21] MEDS: Cefepime HCl 2,000 MG in 0.9 % Sodium Chloride Mini Bag 100 ML IVPB SCH ×2 (00:41→08:07)
[2020-03-21] MEDS: Heparin 25,000UNIT/250ML 1/2NS 25,000 UNIT/250 ML IV.SOLN IVC SCH ×2 (00:41→11:43)
[2020-03-21] MEDS: Insulin LISPRO 300 UNITS/3 ML VIAL SUBQ SCH ×3 (01:02→08:30)
[2020-03-21] MEDS: Cisatracurium 200 MG in 0.9 % Sodium Chloride 180 ML IVC SCH ×2 (01:03→09:45)
[2020-03-21] MEDS: MetroNIDAZOLE 500 MG/100 ML 500 MG/100 ML BAG IVPB SCH ×2 (03:26→08:10)
[2020-03-21] MEDS: Ipratropium 1 PUFF INHALER IH SCH ×3 (03:27→11:18)
[2020-03-21 03:44] LABS: ABG Ionized Calcium 1.14 mmol/L (1.15-1.35)
[2020-03-21 03:45] LABS: Hemoglobin 11.2 g/dL (11.5-15.4)
[2020-03-21 03:47] LABS: Hematocrit 36.8 % (35.3-44.9); Mean Corpuscular HGB Conc 30.4 g/dL (31.6-35.5); Mean Corpuscular Hemoglobin 26.7 pg (28.0-33.3); Mean Corpuscular Volume 87.6 fL (83.0-100.0); Mean Platelet Volume 10.7 fL (9.4-12.4); Platelet Count 287 K/mcL (140-400); Red Cell Distribution Width 14.2 % (11.5-14.5)
[2020-03-21 04:05] LABS: BUN/Creatinine Ratio 44 (6-26); Blood Urea Nitrogen 16 mg/dL (6-20); Calcium 6.9 mg/dL (8.6-10.3); Carbon Dioxide 27 mEq/L (23-29); Chloride 107 mEq/L (98-107); Glucose 195 mg/dL (70-105); Magnesium 1.7 mg/dL (1.6-2.6); Osmolality,Calculated 297 (280-300); Phosphorous 3.5 mg/dL (2.7-4.5); Potassium 3.6 mEq/L (3.5-5.1); Sodium 140 mEq/L (136-145); eGFR For African Americans > 60 (> 60); eGFR For Non-African Americans > 60 (> 60)
[2020-03-21 04:08] LABS: ABG Base Excess 6 mEq/L (-2 to 3); ABG HCO3 35 mEq/L (21-27); ABG Oxygen Saturation 97 % (95-98); ABG PCO2 68 mmHg (35-45); ABG PH 7.32 pH Units (7.32-7.45); ABG PO2 101 mmHg (85-104); ABG TCO2 37 mEq/L (20-26); Blood Gas Modality ASSIST CONTROL; Blood Gas VT 380 cc
[2020-03-21 04:08] LABS: White Blood Count 39.7 K/mcL (4.3-11.1)
[2020-03-21 04:11] LABS: Lymphocytes # 3.2 K/mcL (0.6-4.6); Monocytes # 1.6 K/mcL (0.0-1.3); Neutrophils # 31.8 K/mcL (1.6-8.9); Platelet Estimate Normal (Normal)
[2020-03-21] MEDS: FentaNYL (PF) 2,500 MCG/50 ML IV.SOLN IVC SCH (04:26)
[2020-03-21] MEDS ORDERED: Potassium Chloride 40 MEQ/200 ML BAG IVPB PRN (06:32)
[2020-03-21] MEDS: Dexmedetomidine HCl 400 MCG/100 ML MLS IVC SCH (07:50)
[2020-03-21] MEDS: Docusate Oral Soln 100 MG/10 ML UDC GTUBE SCH (08:06)
[2020-03-21] MEDS: Chlorhexidine Rinse 15 ML MOUTHWASH MM SCH (08:06)
[2020-03-21] MEDS: Pregabalin 75 MG CAPSULE GTUBE SCH (08:06)
[2020-03-21] MEDS: Furosemide 40 MG/4 ML VIAL IVP SCH (08:07)
[2020-03-21] MEDS: lamoTRIgine 25 MG TABLET GTUBE SCH (08:08)
[2020-03-21] MEDS: Cholecalciferol (D-3) 1,000 UNIT (25MCG) TABLET PO SCH (08:08)
[2020-03-21] MEDS: Pantoprazole 40 MG VIAL IVP SCH (08:08)
[2020-03-21] MEDS: Insulin DETEMIR 100 UNIT/ML X5UNITS SUBQ SCH (08:09)
[2020-03-21] MEDS: Carbamide Peroxide 150 DROP/15 ML BOTTLE RIGHT EAR SCH (08:11)
[2020-03-21] MEDS: Dexamethasone Sodium Phos/PF 10 MG/ML VIAL IVP SCH (08:56)
[2020-03-21] MEDS: Phenylephrine 20 MG in 0.9 % Sodium Chloride 250 ML IVC SCH (09:45)
[2020-03-21 10:02] VITALS: BP 120/54
== END 2020-03-21 11:25 | disposition short-term general hospital (02) | DRG 342 ==
LOC: 3NENU 16:46 → EMEROOARM 16:46 → SUATTDRO 22:29 → 3NENU 22:52 → SUATTDRO 03-06 14:15 → 2NENU 03-09 16:21 → ICNU 03-10 15:23
PROVIDERS: ADMIT Family Medicine; ATTEND General Practice